=== PATIENT | female | born 1980 | race Caucasian/White ===

== ENCOUNTER 2017-07-27 13:07 | Inpatient (IN) | payer OTHER ==
[~2017-07-27] VITALS: Ht 167.6 cm; Wt 80.7 kg
--- NOTE | 2017-07-27 02:10 | NUR ---
DR. ONEAL CALLED BACK NO NEW ORDERS GIVEN FOR POTASSIUM Addendum: 07/28/17 at 0235 by Yessy Jiménez RN WRONG TIME PUT IN, 2010 IS CORRECT TIME
[~2017-07-27 13:07] MED LIST: ACET-8386 PO; ONDA4ODT1 PO; ONDA4ODT1 SL; PANT40EC PO; TRAM50TA3 PO
[2017-07-27 13:15] VITALS: BP 131/96
--- NOTE | 2017-07-27 13:40 | NUR ---
PATIENT PRESENTS TO ED WITH 37/F PRESENT TO ER C/O NAUSEA AND VOMITING x 2 DAYS. HX: CHRONIC ABD PAIN MEDS: DICYCLOMINE, SUCRRALFATE, PANTOPRAZOLE; DENIES DIARRHEA; SKIN IS PINK/WARM/DRY; AAOX4 WITH EVEN AND STEADY GAIT; LUNGS CLEAR BL; HR EVEN AND REGULAR; PT DENIES ANY FEVER, CP, SOB, OR COUGH AT THIS TIME; PATIENT STATES PAIN OF 10/10 AT THIS TIME; VSS; PATIENT POSITIONED FOR COMFORT; HOB ELEVATED; BEDRAILS UP X2; BED DOWN. ER MD MADE AWARE OF PT STATUS.
--- NOTE | 2017-07-27 13:48 | NUR ---
PT AMBULATED TO BED 7 AT THIS TIME.
[2017-07-27] MEDS ORDERED: ONDANSETRON 4 MG/2 ML VIAL IVP ONE ×2 (13:55→15:05)
[2017-07-27] MEDS ORDERED: HYDROmorphone 1 MG/ML AMP IVP ONE ×2 (13:55→15:45)
[2017-07-27] MEDS ORDERED: PROMETHAZINE 25 MG/ML VIAL IM ONE (14:00)
[2017-07-27] MEDS ORDERED: NACL 0.9% 1,000 ML IV ONE ×2 (14:15→16:40)
[2017-07-27 14:22] LABS: BASOPHILS # (AUTO) 0.3 K/uL (0.00-0.22); EOSINOPHILS # (AUTO) 0.1 K/uL (0-0.4); EOSINOPHILS % (AUTO) 0.6 % (0.0-4.0); HEMOGLOBIN 14.4 g/dL (12.0-16.0); LYMPHOCYTES # (AUTO) 1.9 K/uL (2.5-16.5); LYMPHOCYTES % (AUTO) 11.3 % (20.5-51.1); MEAN CORPUSCULAR HEMOGLOBIN 28 pg (27-31); MEAN CORPUSCULAR HGB CONC 33 g/dL (33-37); MEAN CORPUSCULAR VOLUME 85 fL (80-94); MONOCYTES # (AUTO) 0.4 K/uL (0.8-1.0); MONOCYTES % (AUTO) 2.6 % (1.7-9.3); NEUTROPHILS # (AUTO) 13.7 K/uL (1.8-7.7); NEUTROPHILS % (AUTO) 83.5 % (42.2-75.2); PLATELET COUNT (AUTO) 376 K/uL (140-450); RED BLOOD CELL COUNT(AUTO) 5.19 MIL/uL (4.20-5.40); RED CELL DISTRIBUTION WIDTH 13.8 % (11.6-13.7); WHITE BLOOD COUNT (AUTO) 16.4 K/uL (4.8-10.8)
[2017-07-27 14:38] LABS: ANION GAP 19.5 (8-16); CARBON DIOXIDE 21.7 mmol/L (21-32); CREATININE 1.1 mg/dL (0.6-1.3); POTASSIUM 3.2 mmol/L (3.5-5.1)
[2017-07-27 14:46] LABS: ALBUMIN 4.4 g/dL (3.4-5.0); TOTAL BILIRUBIN 0.3 mg/dL (0.0-1.0)
--- NOTE | 2017-07-27 14:48 | NUR ---
PT UNABLE TO GIVE URINE AT THIS TIME;
[2017-07-27 14:49] LABS: PROTHROMBIN TIME 10.9 secs (10.8-13.4)
[2017-07-27] MEDS ORDERED: diphenhydrAMINE 50 MG/ML VIAL IVP ONE (15:45)
--- NOTE | 2017-07-27 16:15 | NUR ---
X RAY AT BEDSIDE.
--- NOTE | 2017-07-27 16:49 | NUR ---
ASKED PT 4 X IF SHE CAN GIVE URINE SPECIMEN;PT STATES I CAN'T AT THIS TIME;
[2017-07-27] MEDS ORDERED: HYDROcodone/APAP 5/325 MG 1 TAB TAB PO PRN ×2 (17:40)
[2017-07-27] MEDS ORDERED: LORazepam 2 MG/ML VIAL IVP PRN (17:40)
[2017-07-27] MEDS ORDERED: ACETAMINOPHEN 325 MG TAB PO PRN (17:40)
[2017-07-27] MEDS: DEXT 5% /NACL 0.9% 1,000 ML IV SCH (17:40)
[2017-07-27] MEDS ORDERED: METOCLOPRAMIDE 10 MG/2 ML INJ VIAL IVP PRN ×2 (17:40→21:05)
--- NOTE | 2017-07-27 17:49 | NUR ---
Patient will be admitted to care of DR POLLARD. Admited to MS. Will go to room 104 B. Belongings list completed. Report to ALEXANDRE SAUCEDO.
--- NOTE | 2017-07-27 18:38 | NUR ---
PT TO ROOM 104B FROM ER ON [facility], PT AMBULATED FROM HALLWAY TO BED WITHOUT PROBLEM, REPORT RECEIVED FROM BLAIRE RN, PT AAOX4, RESP EVEN UNLABORED, SKIN WARM DRY COLOR WNL SLIGHTLY PALE, PT REPORTS FEELING NAUSEOUS BUT NO ACTIVE VOMITING NOW, PT DENIES PAIN, IV TO RIGHT WRIST 24 WNL, PLAN OF CARE REVIEWED, PT ORIENTED TO ROOM AND FLOOR, SAFETY MEASURES IN PLACE, CALL COLE WITHIN REACH, SIDE RAILS UP, BED LOCKED IN LOW POSITION.
[2017-07-27 18:45] VITALS: BP 142/89
--- NOTE | 2017-07-27 18:55 | NUR ---
MEDICATED WITH REGLAN FOR NAUSEA AT THIS TIME, D5 NS IVF STARTED AT 100ML/HR.
[2017-07-27 19:31] VITALS: BP 137/54
--- NOTE | 2017-07-27 19:31 | NUR ---
REPORT RECEIVED FROM DAY NURSE SHERYL RN, PT AAOX4, RESP EVEN UNLABORED, SKIN WARM DRY COLOR WNL SLIGHTLY PALE, PT REPORTS FEELING NAUSEOUS BUT NO ACTIVE VOMITING NOW, PT DENIES PAIN, IV TO RIGHT WRIST 24 WNL, INITIAL ASSESSMENT COMPLETED, PLAN OF CARE REVIEWED, PT ORIENTED TO ROOM AND FLOOR, SAFETY MEASURES IN PLACE, CALL COLE WITHIN REACH, SIDE RAILS UP, BED LOCKED IN LOW POSITION.
--- NOTE | 2017-07-27 19:50 | NUR ---
PT CURRENTLY VOMITING, PT USING BAG FOR EMESIS, CHANGED PTS SHEETS AND GOWN DUE SOILING
[2017-07-27] MEDS: ONDANSETRON 4 MG/2 ML VIAL IVP PRN (19:54)
--- NOTE | 2017-07-27 19:54 | NUR ---
PT MEDICATED WITH ZOFRAN ORDERED, ALL SAFETY PRECAUTIONS MET, CALL LIGHT WITHIN REACH, WILL CONTINUE TO MONITOR
--- NOTE | 2017-07-27 20:00 | NUR ---
PAGED DR. ONEAL REGARDING PTS POTASSIUM 3.2
--- NOTE | 2017-07-27 20:01 | NUR ---
DR. ONEAL MADE AWARE OF WBC COUNT, 16,4 NO NEW ORDERS GIVEN
--- NOTE | 2017-07-27 20:10 | NUR ---
DR. ONEAL CALLED BACK NO NEW ORDERS GIVEN FOR POTASSIUM
[2017-07-27] MEDS: diphenhydrAMINE 50 MG/ML VIAL IVP SCH (20:38)
--- NOTE | 2017-07-27 21:00 | NUR ---
PAGED DR. ONEAL FOR NEW ORDER FOR PAIN MEDICATION. PT ONLY HAS NORCO ORDERED AND PT IS CURRENTLY VOMITING
--- NOTE | 2017-07-27 21:05 | NUR ---
DR. ONEAL CALLED BACK WITH NEW ORDERS FOR DILAUDID, WILL ADMINISTER NEEDED
[2017-07-27] MEDS: HYDROmorphone 1 MG/ML AMP IVP PRN (23:31)
--- NOTE | 2017-07-27 23:31 | NUR ---
PT STATES SHE IS IN 07/12 IN ABDOMEN, WILL MEDICATE PER MD ORDERS.
[2017-07-28] VITALS: BP 136/76
[2017-07-28] MEDS: DEXT 5% /NACL 0.9% 1,000 ML IV SCH ×4 (00:20→20:20)
[2017-07-28] MEDS: ONDANSETRON 4 MG/2 ML VIAL IVP PRN ×3 (03:07→22:38)
[2017-07-28] MEDS: diphenhydrAMINE 50 MG/ML VIAL IVP SCH ×3 (05:41→22:37)
--- NOTE | 2017-07-28 07:23 | NUR ---
ENDORSED PLAN OF CARE TO AM NURSE, PT IN STABLE CONDITION. NO S/S OF DISTRESS NOTED. CALL LIGHT IS WITHIN REACH
--- NOTE | 2017-07-28 07:24 | NUR ---
RECEIVED CARE OF PT FROM PHOTOCOMPOSING MACHINE OPERATOR NURSE AT BEDSIDE. PT IS A&OX4. PT HAS IV ON R WRIST 24 G RUNNING D5NS@150ML/HR. PT C/O NAUSEA AND PAIN, WILL MEDICATE WHEN MEDS ARE DUE. CALL LIGHT WITHIN REACH. WILL CONTINUE TO MONITOR.
[2017-07-28 07:50] LABS: ALBUMIN 3.7 g/dL (3.4-5.0); ANION GAP 17.5 (8-16); CARBON DIOXIDE 23.1 mmol/L (21-32); CREATININE 0.7 mg/dL (0.6-1.3); POTASSIUM 3.6 mmol/L (3.5-5.1); TOTAL BILIRUBIN 0.2 mg/dL (0.0-1.0)
[2017-07-28] MEDS: HYDROmorphone 1 MG/ML AMP IVP PRN ×2 (07:59→22:38)
[2017-07-28 08:00] VITALS: BP 116/85
[2017-07-28] MEDS: ENOXAPARIN 40 MG/0.4 ML SYR SUBQ SCH (08:12)
[2017-07-28 08:13] LABS: HEMATOCRIT 43.3 % (36-48); HEMOGLOBIN 14.5 g/dL (12.0-16.0); MEAN CORPUSCULAR HEMOGLOBIN 29 pg (27-31); MEAN CORPUSCULAR HGB CONC 34 g/dL (33-37); MEAN CORPUSCULAR VOLUME 86 fL (80-94); PLATELET COUNT (AUTO) 349 K/uL (140-450); RED BLOOD CELL COUNT(AUTO) 5.03 MIL/uL (4.20-5.40); RED CELL DISTRIBUTION WIDTH 14.1 % (11.6-13.7); WHITE BLOOD COUNT (AUTO) 26.7 K/uL (4.8-10.8)
[2017-07-28 08:41] LABS: LYMPHOCYTES % (MANUAL) 8 % (20-46); MONOCYTES % (MANUAL) 2 % (5-12)
--- NOTE | 2017-07-28 09:30 | NUR ---
PT IN SLEEPING COMFORTABLY IN BED. CALL LIGHT WITHIN REACH. WILL CONTINUE TO MONITOR.
--- NOTE | 2017-07-28 11:21 | NUR ---
07/28/17 RD INITIAL ASSESSMENT COMPLETED PLEASE REFER TO NUTRITION ASSESSMENT UNDER CARE ACTIVITY FOR ESTIMATED NUTRITIONAL NEEDS. 1. CONTINUE TO TOLERATE/CONSUME CLEAR LIQUID DIET 2. WHEN MEDICALLY FEASIBLE, ADVANCE TO REGULAR DIET TOLERATED 3. RD TO FOLLOW UP WITHIN 2-3 DAYS; HIGH RISK DEVIN MACIEL, JUAN PABLO
--- NOTE | 2017-07-28 11:30 | NUR ---
PROVIDED PT WITH APPLE JUICE. PT TOLERATED WELL. CALL LIGHT WITHIN REACH. WILL CONTINUE TO MONITOR.
--- NOTE | 2017-07-28 12:30 | NUR ---
PT STATED NAUSEA HAS IMPROVED AND PAIN IN TOLERABLE. CALL LIGHT WITHIN REACH. WILL CONTINUE TO MONITOR.
[2017-07-28] MEDS: metroNIDAZOLE 500 MG/NS PREMIX 100 ML IV SCH ×2 (12:57→22:37)
--- NOTE | 2017-07-28 13:30 | NUR ---
PT GOT UP TO USE BATHROOM. URINE SAMPLE COLLECTED. FOUND THAT PT HAD 1 VOID ON PAD TOO. PT TOLERATED WELL. HELPED BACK TO BED. CALL LIGHT WITHIN REACH. WILL CONTINUE TO MONITOR.
--- NOTE | 2017-07-28 13:40 | NUR ---
SPOKE TO DR. POLLARD REGARDING DIFFICULTY PUTTING IN NEW IV OF 20 GAUGE FOR IV CONTRAST. GAVE ORDER FOR CT ABD/PELVIS WITH ORAL CONTRAST ONLY. WILL CARRY OUT.
[2017-07-28 14:33] LABS: BASOPHILS # (AUTO) 0.2 K/uL (0.00-0.22); BASOPHILS % (AUTO) 0.9 % (0.0-2.0); EOSINOPHILS # (AUTO) 0.1 K/uL (0-0.4); EOSINOPHILS % (AUTO) 0.4 % (0.0-4.0); HEMATOCRIT 38.2 % (36-48); HEMOGLOBIN 12.8 g/dL (12.0-16.0); LYMPHOCYTES % (AUTO) 16.6 % (20.5-51.1); MEAN CORPUSCULAR HEMOGLOBIN 29 pg (27-31); MEAN CORPUSCULAR HGB CONC 34 g/dL (33-37); MEAN CORPUSCULAR VOLUME 86 fL (80-94); MONOCYTES % (AUTO) 5.7 % (1.7-9.3); NEUTROPHILS % (AUTO) 76.4 % (42.2-75.2); PLATELET COUNT (AUTO) 331 K/uL (140-450); RED BLOOD CELL COUNT(AUTO) 4.45 MIL/uL (4.20-5.40); RED CELL DISTRIBUTION WIDTH 13.8 % (11.6-13.7); WHITE BLOOD COUNT (AUTO) 18.3 K/uL (4.8-10.8)
[2017-07-28 14:42] LABS: APPEARANCE,URINE CLEAR (CLEAR); BILIRUBIN,URINE NEGATIVE (NEGATIVE); BLOOD, URINE NEGATIVE (NEGATIVE); COLOR,URINE YELLOW (YELLOW); LEUKOCYTE ESTERASE ,URINE NEGATIVE (NEGATIVE); NITRITE, URINE NEGATIVE (NEGATIVE); UGLUCOSE NEGATIVE (NEGATIVE)
[2017-07-28 14:47] LABS: BARBITURATE, URINE NEG. ng/ml (NEG <=200); BENZODIAZEPINE, URINE NEG. ng/mL (NEG <=200); CANNABINOID, URINE NEG. ng/mL (NEG <=50); COCAINE, URINE NEG. ng/mL (NEG <=300); OPIATE, URINE NEG. ng/mL (NEG <=2000); PHENCYCLIDINE SCREEN,URINE NEG. ng/mL (NEG <=25)
[2017-07-28 16:00] VITALS: BP 112/72
[2017-07-28] MEDS: SENNA 8.6 MG TAB PO SCH (17:00)
--- NOTE | 2017-07-28 17:00 | NUR ---
MED NOT ADMINISTERED DUE TO PT'S NPO STATUS, PREPING FOR CT ABD/PELVIS WITH ORAL CONTRAST.
--- NOTE | 2017-07-28 18:10 | NUR ---
PT WHEELED BY [place] FOR CT SCAN. PT IN STABLE CONDITION.
--- NOTE | 2017-07-28 18:25 | NUR ---
PT CAME BACK TO UNIT. CALL LIGHT WITHIN REACH. WILL CONTINUE TO MONITOR.
--- NOTE | 2017-07-28 19:35 | NUR ---
ENDORSED CARE OF PT TO MOSAIC TECHNICIAN NURSE AT BEDSIDE. PT IN STABLE CONDITION.
--- NOTE | 2017-07-28 19:36 | NUR ---
RECD. RESTING IN BED, AWAKE, A/OX4. JUST BEEN TO RADIOLOGY FOR A TEST. IV SALINE LOCK AT THE RIGHT WRIST G24, PATENT AND INTACT. NO N/V NOTED AT THIS TIME. PLAN OF CARE FOR THE SHIFT DISCUSSED. VERBALIZED UNDERSTANDING. DENIES PAIN 0/10.
--- NOTE | 2017-07-28 20:00 | NUR ---
Patient's Plan of Care was discussed and reviewed with ZONE MANAGER: GRAY
[2017-07-28 22:35] VITALS: BP 111/70
[2017-07-28] MEDS: FAMOTIDINE 20 MG/2 ML VIAL IV SCH (22:37)
--- NOTE | 2017-07-28 22:37 | NUR ---
STARTED FLAGYL IVPB AT THIS TIME. IVPB INFUSING WELL.
--- NOTE | 2017-07-28 22:38 | NUR ---
NAUSEATED, MEDICATED WITH ZOFRAN 4 MG. IVP BY ALEXANDRE LONGORIA.
--- NOTE | 2017-07-28 23:08 | NUR ---
NO NAUSEA NOTED, RESTING COMFORTABLY IN BED.
--- NOTE | 2017-07-28 23:37 | NUR ---
LEAH LINARESPB COMPLETED AT THIS TIME.
--- NOTE | 2017-07-29 | NUR ---
SLEEPING COMFORTABLY IN BED.
[2017-07-29] MEDS: DEXT 5% /NACL 0.9% 1,000 ML IV SCH ×4 (03:31→23:00)
[2017-07-29] MEDS: diphenhydrAMINE 50 MG/ML VIAL IVP SCH ×3 (04:30→21:06)
[2017-07-29] MEDS: metroNIDAZOLE 500 MG/NS PREMIX 100 ML IV SCH ×3 (04:30→21:05)
--- NOTE | 2017-07-29 04:30 | NUR ---
STARTED FLAGYL IVPB AT THIS TIME. IVPB INFUSING WELL.
--- NOTE | 2017-07-29 05:30 | NUR ---
LEAH LINARESPB COMPLETED AT THIS TIME.
--- NOTE | 2017-07-29 06:45 | NUR ---
CONDITION REMAIN STABLE. WILL ENDORSE TO AM NURSE FOR CONTINUITY OF CARE.
--- NOTE | 2017-07-29 07:20 | NUR ---
RECIVED REPORT FROM NIGHT NURSE, PT IS AAOX4, ON ROOM AIR, IV TO RIGHT WRIST 24G INFUSING WELL, SKIN INTACT, INITIAL ASSESSMENT COMPLETED, REVIEWED PLAN OF CARE WITH PT, PT VERBALIZED UNDERSTANDING, ALL SAFETY PRECAUTION MET. CALL LIGHT WITHIN REACH. WILL CONTINUE TO MONITOR.
[2017-07-29 08:00] VITALS: BP 121/75
[2017-07-29 09:16] LABS: BASOPHILS # (AUTO) 0.2 K/uL (0.00-0.22); BASOPHILS % (AUTO) 2.2 % (0.0-2.0); EOSINOPHILS # (AUTO) 0.2 K/uL (0-0.4); EOSINOPHILS % (AUTO) 1.8 % (0.0-4.0); HEMATOCRIT 38.7 % (36-48); HEMOGLOBIN 12.5 g/dL (12.0-16.0); LYMPHOCYTES # (AUTO) 2.9 K/uL (2.5-16.5); LYMPHOCYTES % (AUTO) 26.1 % (20.5-51.1); MEAN CORPUSCULAR HEMOGLOBIN 28 pg (27-31); MEAN CORPUSCULAR HGB CONC 32 g/dL (33-37); MEAN CORPUSCULAR VOLUME 87 fL (80-94); MONOCYTES # (AUTO) 0.7 K/uL (0.8-1.0); MONOCYTES % (AUTO) 5.9 % (1.7-9.3); NEUTROPHILS # (AUTO) 7.2 K/uL (1.8-7.7); PLATELET COUNT (AUTO) 252 K/uL (140-450); RED BLOOD CELL COUNT(AUTO) 4.47 MIL/uL (4.20-5.40); WHITE BLOOD COUNT (AUTO) 11.2 K/uL (4.8-10.8)
[2017-07-29] MEDS: SENNA 8.6 MG TAB PO SCH ×3 (09:23→16:50)
[2017-07-29] MEDS: FAMOTIDINE 20 MG/2 ML VIAL IV SCH ×2 (09:23→21:06)
[2017-07-29 09:29] LABS: ANION GAP 12.1 (8-16); CARBON DIOXIDE 24.9 mmol/L (21-32); CREATININE 0.9 mg/dL (0.6-1.3)
[2017-07-29] MEDS: ENOXAPARIN 40 MG/0.4 ML SYR SUBQ SCH (09:34)
--- NOTE | 2017-07-29 09:34 | NUR ---
DUE MEDICATIONS GIVEN, PT TOLERATED WELL. WILL CONTINUE TO MONITOR.
[2017-07-29 09:35] LABS: CHOL/HDL RATIO 4.2 (1-4.5)
[2017-07-29] MEDS ORDERED: ONDA4TAB PO (10:10)
[2017-07-29] MEDS ORDERED: METR500T1 PO (10:10)
[2017-07-29] MEDS ORDERED: DICY10CA14 PO (10:10)
[2017-07-29] MEDS ORDERED: HYDROmorphone 1 MG/ML AMP IVP PRN (10:15)
[2017-07-29] MEDS ORDERED: POTASSIUM CHLORIDE 10 MEQ TABER PO SCH ×2 (10:15→21:00)
[2017-07-29] MEDS: METOCLOPRAMIDE 10 MG TAB PO SCH ×2 (11:47→16:49)
--- NOTE | 2017-07-29 11:47 | NUR ---
DUE MEDICATIONS GIVEN, PT TOLERATED WELL. ALL NEEDS MET. WILL CONTINUE TO MONITOR.
[2017-07-29] MEDS: DICYCLOMINE HCL LIQUID 10 MG/5 ML UDC PO SCH ×3 (12:46→21:10)
--- NOTE | 2017-07-29 12:48 | NUR ---
DUE MEDICATIONS GIVEN. PT TOLERATED WELL. WILL CONTINUE TO MONITOR.
--- NOTE | 2017-07-29 14:16 | NUR ---
PT CURRENTLY RESTING IN ROOM ON CELL PHONE, ALL NEEDS MET. WILL CONTINUE TO MONITOR.
[2017-07-29 16:00] VITALS: BP 122/68
--- NOTE | 2017-07-29 16:10 | NUR ---
PT CURRENTLY RESTING IN BED, READING. NO S/S OF DISTRESS NOTED. WILL CONTINUE TO MONITOR.
--- NOTE | 2017-07-29 17:25 | NUR ---
PT CURRENTLY RESTING, IN BED. ALL NEEDS MET. WILL CONTINUE TO MONITOR.
--- NOTE | 2017-07-29 19:20 | NUR ---
ENDORSED PLAN OF CARE TO NIGHT NURSE, PT IN STABLE CONDITION
--- NOTE | 2017-07-29 19:21 | NUR ---
RECD. RESTING IN BED, AWAKE, A/OX4. RESPIRATION EVEN AND UNLABORED. IV OF NS INFUSING, RIGHT WRIST G24, AT 50 ML/HR. STATED NOT FEELING NAUSEATED, FEELING MUCH BETTER THAN YESTERDAY. PLAN OF CARE FOR THE SHIFT DISCUSSED. VERBALIZED UNDERSTANDING. DENIES PAIN AT THIS TIME 010.
--- NOTE | 2017-07-29 19:30 | NUR ---
RECEIVED PT IN STABLE CONDITION FROM AM NURSE. AWAKE,ALERT AND ORIENTED X4, ON ARELY MONITOR. WITH NO C/O ANY DISCOMFORT NOR PAIN NOTED. WITH BLOOD TRANSFUSION 2ND UNIT STILL INFUSING. PLAN OF CARE DISCUSSED . VERBALIZED UNDERSTANDING. CALL LIGHT PLACED WITHIN EASY REACH. WILL CONTINUE TO MONITOR. Addendum: 07/29/17 at 1957 by Kaley Yusuf RN CANCEL ABOVE NOTES. CAREGIVER MISTAKE.
[2017-07-29 19:45] VITALS: BP 111/66
[2017-07-29] MEDS: POTASSIUM CHLORIDE 10 MEQ TABER PO SCH (21:00)
[2017-07-29] MEDS: DOCUSATE SODIUM 250 MG GELCAP PO SCH (21:00)
--- NOTE | 2017-07-29 22:42 | NUR ---
Patient's Plan of Care was discussed and reviewed with SENIOR INVESTIGATOR: ANA MARÍA CASTELLANO
[2017-07-30] VITALS: BP 118/65
--- NOTE | 2017-07-30 | NUR ---
SLEEPING COMFORTABLY IN BED.
[2017-07-30] MEDS: DEXT 5% /NACL 0.9% 1,000 ML IV SCH ×2 (02:16→05:40)
--- NOTE | 2017-07-30 04:00 | NUR ---
STILL SLEEPING COMFORTABLY IN BED, NO N/V NOTED SINCE THE BEGINNING OF SHIFT.
[2017-07-30] MEDS: metroNIDAZOLE 500 MG/NS PREMIX 100 ML IV SCH ×2 (05:21→12:13)
[2017-07-30] MEDS: diphenhydrAMINE 50 MG/ML VIAL IVP SCH ×2 (05:21→12:16)
--- NOTE | 2017-07-30 07:05 | NUR ---
RECEIVED REPORT FROM NIGHT NURSE, PT IS AAOX4, ON ROOM AIR, LEFT HAND 22G , SKIN INTACT, INITIAL ASSESSMENT COMPLETED, REVIEWED PLAN OF CARE WITH PT, PT VERBALIZED UNDERSTANDING, ALL SAFETY PRECAUTION MET. CALL LIGHT WITHIN REACH. WILL CONTINUE TO MONITOR.
--- NOTE | 2017-07-30 07:05 | NUR ---
ABLE TO SLEPT WELL. ENDORSED TO ALEXANDRE MARRUFO FOR CONTINUITY OF CAFE.
[2017-07-30 07:48] VITALS: BP 112/71
[2017-07-30] MEDS: DICYCLOMINE HCL LIQUID 10 MG/5 ML UDC PO SCH ×2 (08:36→12:16)
[2017-07-30] MEDS: METOCLOPRAMIDE 10 MG TAB PO SCH ×2 (08:36→11:09)
[2017-07-30] MEDS: FAMOTIDINE 20 MG/2 ML VIAL IV SCH (08:36)
--- NOTE | 2017-07-30 08:36 | NUR ---
DUE MEDICATIONS GIVEN, PT TOLERATED WELL. ALL NEEDS MET. WILL CONTINUE TO MONITOR.
[2017-07-30] MEDS: POTASSIUM CHLORIDE 10 MEQ TABER PO SCH (08:39)
[2017-07-30] MEDS: ENOXAPARIN 40 MG/0.4 ML SYR SUBQ SCH (08:46)
[2017-07-30] MEDS: SENNA 8.6 MG TAB PO SCH ×2 (08:47→13:00)
[2017-07-30] MEDS: DOCUSATE SODIUM 250 MG GELCAP PO SCH (08:47)
[2017-07-30 09:51] LABS: BASOPHILS # (AUTO) 0.2 K/uL (0.00-0.22); BASOPHILS % (AUTO) 1.9 % (0.0-2.0); EOSINOPHILS # (AUTO) 0.3 K/uL (0-0.4); EOSINOPHILS % (AUTO) 2.4 % (0.0-4.0); HEMATOCRIT 40.2 % (36-48); HEMOGLOBIN 13.3 g/dL (12.0-16.0); LYMPHOCYTES # (AUTO) 2.5 K/uL (2.5-16.5); LYMPHOCYTES % (AUTO) 20.1 % (20.5-51.1); MEAN CORPUSCULAR HEMOGLOBIN 28 pg (27-31); MEAN CORPUSCULAR HGB CONC 33 g/dL (33-37); MEAN CORPUSCULAR VOLUME 86 fL (80-94); MONOCYTES # (AUTO) 0.9 K/uL (0.8-1.0); MONOCYTES % (AUTO) 7.2 % (1.7-9.3); NEUTROPHILS # (AUTO) 8.8 K/uL (1.8-7.7); NEUTROPHILS % (AUTO) 68.4 % (42.2-75.2); PLATELET COUNT (AUTO) 260 K/uL (140-450); RED BLOOD CELL COUNT(AUTO) 4.69 MIL/uL (4.20-5.40); RED CELL DISTRIBUTION WIDTH 13.8 % (11.6-13.7); WHITE BLOOD COUNT (AUTO) 12.6 K/uL (4.8-10.8)
[2017-07-30 10:19] LABS: ANION GAP 9.1 (8-16); CARBON DIOXIDE 26.3 mmol/L (21-32); CREATININE 0.8 mg/dL (0.6-1.3); POTASSIUM 3.4 mmol/L (3.5-5.1)
--- NOTE | 2017-07-30 10:37 | NUR ---
DISCUSSED DISCHARGE PLAN WITH PT, PT VERBALIZED UNDERSTANDING.
--- NOTE | 2017-07-30 11:10 | NUR ---
DUE MEDICATIONS GIVEN, PT CURRENTLY RESTING IN BED, ALL NEEDS MET. WILL CONTINUE TO MONITOR
--- NOTE | 2017-07-30 11:24 | NUR ---
CM NOTE REVIEW FAXED TO [facility] [phone] [place] [phone]
--- NOTE | 2017-07-30 12:17 | NUR ---
DUE MEDICATIONS GIVEN, PT CURRENTLY READING A BOOK ALL NEEDS MET. WILL CONTINUE TO MONITOR.
--- NOTE | 2017-07-30 14:20 | NUR ---
PT SIGNED ALL DISCHARGE PAPERWORK, PRESCRIPTION GIVEN, FOLLOW UP INFORMATION GIVEN, ALL PERSONAL BELONGINGS WITH PT, IV REMOVED TIP INTACT.
--- NOTE | 2017-07-30 14:45 | NUR ---
PT WAS WALKED OUT TO FRONT LOBBY IN STABLE CONDITION.
== END 2017-07-30 14:45 | disposition home or self-care (01) | DRG 254 ==
LOC: MED 13:07 → MTU 17:44 → OBSVTOIN 21:03
PROVIDERS: ADMIT Hospitalist; ATTEND Hospitalist
DX: K58.9 Irritable bowel syndrome, unspecified (principal); F33.9 Major depressive disorder, recurrent, unspecified; K27.9 Peptic ulcer, site unspecified, unspecified as acute or chronic, without hemorrhage or perforation; G43.A0 Cyclical vomiting, in migraine, not intractable; D72.829 Elevated white blood cell count, unspecified; E66.9 Obesity, unspecified; K59.00 Constipation, unspecified; K21.9 Gastro-esophageal reflux disease without esophagitis; E87.6 Hypokalemia; Z68.28 Body mass index [BMI] 28.0-28.9, adult; Z90.49 Acquired absence of other specified parts of digestive tract; Z87.891 Personal history of nicotine dependence
CPT/HCPCS: 96361; 96372; 96374; 96375; 96376; 99285; G0378; 36415; 70450; 74000; 80048; 80053; 80305; 81003; 82150; 83690; 83735; 84703; 85025; 85610; 85730; 86140; 87081; J1170; J1200; J1650; J2405; J2550; J2765; J3490; J7030; J7042; J8597; Q0092

== ENCOUNTER 2017-09-05 09:07 | Emergency (ER) | payer OTHER ==
[~2017-09-05] VITALS: Ht 167.6 cm; Wt 84.0 kg
[~2017-09-05 09:07] MED LIST changes: -ACET-8386 PO; +DICY10CA14 PO; +METR500T1 PO; -ONDA4ODT1 PO; -ONDA4ODT1 SL; +ONDA4TAB PO; -TRAM50TA3 PO
[2017-09-05 09:11] VITALS: BP 148/82
--- NOTE | 2017-09-05 09:17 | NUR ---
Patient ambulated to bed 12 after providing a urine specimen. RN evaluating patient at bedside.
--- NOTE | 2017-09-05 09:18 | NUR ---
37F BIB FATHER C/O MID-ABDOMINAL PAIN X LAST NIGHT WITH VOMITING X THIS MORNING.HX: GASTRITIS, IBS, PANCREATITIS. RX: PT STATES " IT'S IN THE RECORDS". SKIN IS PINK/WARM/DRY; AAOX4 WITH EVEN AND STEADY GAIT; LUNGS CLEAR BL; PT DENIES ANY FEVER, CP, SOB, OR COUGH AT THIS TIME; PATIENT STATES PAIN OF 8/10 AT THIS TIME; PATIENT POSITIONED FOR COMFORT; HOB ELEVATED; BEDRAILS UP X2; BED DOWN. ER MD MADE AWARE OF PT STATUS.
--- NOTE | 2017-09-05 09:42 | NUR ---
Dr. Rueda evaluating patient at bedside.
[2017-09-05] MEDS ORDERED: HYDROmorphone PFS 2 MG/ML SYR IM ONE ×2 (09:45→10:55)
[2017-09-05] MEDS ORDERED: GLYCOPYRROLATE 0.2 MG/ML VIAL IM ONE (09:45)
[2017-09-05] MEDS ORDERED: diphenhydrAMINE 50 MG/ML VIAL IM ONE (09:45)
[2017-09-05 10:57] LABS: APPEARANCE,URINE SL CLOUDY (CLEAR); BILIRUBIN,URINE NEGATIVE (NEGATIVE); BLOOD, URINE 3+ (NEGATIVE); COLOR,URINE YELLOW (YELLOW); LEUKOCYTE ESTERASE ,URINE NEGATIVE (NEGATIVE); NITRITE, URINE NEGATIVE (NEGATIVE); UGLUCOSE NEGATIVE (NEGATIVE)
[2017-09-05 11:12] LABS: RBC,URINE 50-80 /HPF (0-5); WBC,URINE 0-5 (RARE) /HPF (0-5)
[2017-09-05 11:24] LABS: BARBITURATE, URINE NEG. ng/ml (NEG <=200); BENZODIAZEPINE, URINE NEG. ng/mL (NEG <=200); CANNABINOID, URINE NEG. ng/mL (NEG <=50); COCAINE, URINE NEG. ng/mL (NEG <=300); OPIATE, URINE NEG. ng/mL (NEG <=2000); PHENCYCLIDINE SCREEN,URINE NEG. ng/mL (NEG <=25)
--- NOTE | 2017-09-05 11:45 | NUR ---
Dr. Rueda reevaluating patient at bedside.
--- NOTE | 2017-09-05 11:54 | NUR ---
Patient STATES ABD PAIN 2/10 . PT appears to be resting comfortably in bed. Vital Signs within normal limits. Respirations even and unlabored.WILL CONTINUE TO MONITOR.
[2017-09-05 12:20] VITALS: BP 125/74
--- NOTE | 2017-09-05 12:20 | NUR ---
Patient discharged with v/s stable. Written and verbal after care instructions given and explained. Patient alert, oriented and verbalized understanding of instructions. Ambulatory with steady gait. All questions addressed prior to discharge. ID band removed. Patient advised to follow up with PMD. Rx of LEVSIN given. Patient educated on indication of medication including possible reaction and side effects. Opportunity to ask questions provided and answered.
== END 2017-09-05 12:20 | disposition home or self-care (01) ==
LOC: MED 09:07
DX: K58.9 Irritable bowel syndrome, unspecified (principal); K21.9 Gastro-esophageal reflux disease without esophagitis; Z90.89 Acquired absence of other organs
CPT/HCPCS: 80305; 81001; 81025; 96372; 99284; J1170; J1200; J3490

== ENCOUNTER 2018-11-26 13:09 | Inpatient (IN) | payer OTHER ==
[~2018-11-26] VITALS: Ht 167.6 cm; Wt 77.1 kg
[2018-11-26 13:20] VITALS: BP 108/76
--- NOTE | 2018-11-26 13:24 | NUR ---
pt ambulated to er bed 11
--- NOTE | 2018-11-26 13:30 | NUR ---
PT PRESENTS TO THE ED W/C/O GEN ABD PAIN X 1 WEEK. PT STATES THE PAIN GOES FROM THE LEFT THE RIGHT. PT STATES N/V SINCE YESTERDAY. DENIES DIARRHEA. HX: IBS, GERD RX: PANTORAZOLE, DICYCLOMINE, SUCRAPHATE. NKA
[2018-11-26] MEDS: NACL 0.9% 1,000 ML IV ONE ×2 (13:57→14:40)
[2018-11-26] MEDS ORDERED: NACL 0.9% 1,000 ML IV SCH ×2 (13:57→23:55)
[2018-11-26] MEDS ORDERED: MORPHINE SULFATE 4 MG/ML SYR IVP ONE (14:00)
[2018-11-26] MEDS ORDERED: PROMETHAZINE 25 MG/ML VIAL IM ONE (14:00)
[2018-11-26] MEDS ORDERED: KETOROLAC 30 MG/ML VIAL IVP ONE (14:00)
[2018-11-26] MEDS ORDERED: DICYCLOMINE HCL LIQUID 10 MG/5 ML UDC PO ONE (14:00)
--- NOTE | 2018-11-26 14:00 | NUR ---
PT ACTIVELY VOMITING
[2018-11-26 14:47] LABS: APPEARANCE,URINE SL CLOUDY (CLEAR); BILIRUBIN,URINE NEGATIVE (NEGATIVE); BLOOD, URINE NEGATIVE (NEGATIVE); COLOR,URINE YELLOW (YELLOW); LEUKOCYTE ESTERASE ,URINE NEGATIVE (NEGATIVE); NITRITE, URINE NEGATIVE (NEGATIVE); UGLUCOSE NEGATIVE (NEGATIVE)
[2018-11-26 14:52] LABS: RBC,URINE 0-5 (RARE) /HPF (0-5); WBC,URINE 0-5 (RARE) /HPF (0-5)
[2018-11-26 14:58] LABS: BASOPHILS % (AUTO) 0.2 % (0.0-2.0); EOSINOPHILS # (AUTO) 0.1 K/uL (0-0.4); EOSINOPHILS % (AUTO) 0.4 % (0.0-4.0); HEMATOCRIT 45.5 % (36-48); LYMPHOCYTES # (AUTO) 2.7 K/uL (2.5-16.5); LYMPHOCYTES % (AUTO) 14.2 % (20.5-51.1); MEAN CORPUSCULAR HEMOGLOBIN 28 pg (27-31); MEAN CORPUSCULAR HGB CONC 33 g/dL (33-37); MEAN CORPUSCULAR VOLUME 83.6 fL (80-94); MONOCYTES # (AUTO) 0.8 K/uL (0.8-1.0); NEUTROPHILS # (AUTO) 15.3 K/uL (1.8-7.7); NEUTROPHILS % (AUTO) 81.2 % (42.2-75.2); PLATELET COUNT (AUTO) 314 K/uL (140-450); RED BLOOD CELL COUNT(AUTO) 5.44 MIL/uL (4.20-5.40); RED CELL DISTRIBUTION WIDTH 15.7 % (11.6-13.7); WHITE BLOOD COUNT (AUTO) 18.8 K/uL (4.8-10.8)
--- NOTE | 2018-11-26 15:00 | NUR ---
PT COMPLAINING OF PAIN AND CONTINUED EMESIS. ED MD NOTIFIED.
[2018-11-26 15:01] LABS: CARBON DIOXIDE 23.3 mmol/L (21-32); CREATININE 0.9 mg/dL (0.6-1.3); POTASSIUM 3.3 mmol/L (3.5-5.1)
[2018-11-26 15:06] LABS: ALBUMIN 4.2 g/dL (3.4-5.0); TOTAL BILIRUBIN 0.5 mg/dL (0.0-1.0)
[2018-11-26] MEDS ORDERED: FAMOTIDINE 20 MG/2 ML VIAL IVP ONE (16:00)
[2018-11-26] MEDS ORDERED: METOCLOPRAMIDE 10 MG/2 ML INJ VIAL IVP ONE (16:00)
--- NOTE | 2018-11-26 16:00 | NUR ---
PT DECLINED CT, CONTINUES TO COMPLAIN OF PAIN AND EMESIS. ED MD NOTIFIED.
[2018-11-26] MEDS ORDERED: MORPHINE SULFATE 4 MG/ML SYR IM ONE (16:30)
[2018-11-26] MEDS ORDERED: NACL 0.9% 1,000 ML IV ONE (16:30)
--- NOTE | 2018-11-26 17:01 | NUR ---
ULTRASOUND AT BEDSIDE
--- NOTE | 2018-11-26 18:49 | NUR ---
PT CONTINUES TO VOMIT AND COMPLAIN OF PAIN. ED MD NOTIFIED.
--- NOTE | 2018-11-26 19:00 | NUR ---
HCG NEGATIVE PER LAB, CALLL RECEIVED AT THIS TIME. RN AND ER MD NOTIFIED.
--- NOTE | 2018-11-26 19:15 | NUR ---
REPORT GIVEN TO ALEXANDRE LONGORIA.
--- NOTE | 2018-11-26 19:30 | NUR ---
PT LAYING IN BED, RR EVEN AND UNLABORED. PT ACTIVELY VOMITING WITH YELLOW EMESIS, DR NAVARRO MADE AWARE.
[2018-11-26] MEDS ORDERED: ONDANSETRON 4 MG/2 ML VIAL IVP ONE (19:35)
[2018-11-26 19:53] LABS: BARBITURATE, URINE NEG. ng/ml (NEG <=200); BENZODIAZEPINE, URINE NEG. ng/mL (NEG <=200); CANNABINOID, URINE NEG. ng/mL (NEG <=50); COCAINE, URINE NEG. ng/mL (NEG <=300); OPIATE, URINE NEG. ng/mL (NEG <=2000); PHENCYCLIDINE SCREEN,URINE NEG. ng/mL (NEG <=25)
--- NOTE | 2018-11-26 20:07 | NUR ---
PT STILL HAVING NAUSEA AND ACTIVE VOMITING YELLOW EMESIS DESPITE ZOFRAN IVP, REPORTS 10/[address] DURAND MADE AWARE.
[2018-11-26] MEDS ORDERED: PROCHLORPERAZINE 10 MG/2 ML VIAL IVP ONE (20:40)
[2018-11-26] MEDS ORDERED: fentaNYL 0.05 MG/ML VIAL IVP ONE (21:35)
--- NOTE | 2018-11-26 23:20 | NUR ---
Patient will be admitted to care of DR. VO. Admited to MEDR. Will go to room 105A. Belongings list completed. Report to ALEXANDRE RODRIGUEZ
--- NOTE | 2018-11-26 23:30 | NUR ---
PT ARRIVED AT UNIT VIA WHEELCHAIR, AMBULATED TO BED, PT TOLERATED WELL, NO DISTRESS NOTED, RECEIVED BEDSIDE REPORT FROM ER NURSE VON RN, PT IN STABLE CONDITION, IV TO L WRIST 24G PATENT, INTACT, SL, PT ON ROOM AIR, NO SOB, PT STATED HAVING PAIN AT THIS MOMENT, WILL CALL FOR ORDERS, MRSA SWAB TAKEN, ORIENT PT TO ROOM, BED AND CALL LIGHT, INITIAL ASSESSMENT DONE, ALL SAFETY PRECAUTION MET, CALL LIGHT WITHIN REACH, WILL CONTINUE TO MONITOR.
[2018-11-26 23:45] VITALS: BP 137/77
[2018-11-26] MEDS ORDERED: MORPHINE SULFATE 4 MG/ML SYR IVP PRN (23:55)
[2018-11-26] MEDS ORDERED: ONDANSETRON 4 MG/2 ML VIAL IVP PRN (23:55)
--- NOTE | 2018-11-26 23:56 | NUR ---
TALKED TO DR. IRENE REGARDING PT ORDERS, STATED TO ORDER FULL LIQUID DIET, PROTONIX 40MG BID, ZOFRAN 4MG IVP Q6H PRN NAUSEA, MORPHINE 2MG IVP Q3H PRN PAIN, IVF NS @ 100ML/HR, LEVAQUIN 250MG IVPB QD, BMP, CBC FOR THE MORNING, AND URINE CULTURE, WILL PUT IN ORDERS AND CONTINUE WITH ORDERS
[2018-11-27] MEDS ORDERED: LEVOFLOXACIN 250 MG/D5 PREMIX 50 ML IV SCH
--- NOTE | 2018-11-27 00:21 | NUR ---
PAIN MEDICATION ADMINISTERED, PT ALSO C/O NAUSEA AND VOMITED, ZOFRAN ORDERED ADMINISTER, PT TOLERATED WELL, DUE MEDICATIONS ADMINISTERED, PT TOLERATED WELL, CALL LIGHT WITHIN REACH, WILL CONTINUE TO MONITOR.
[2018-11-27] MEDS ORDERED: POTASSIUM CHLORIDE 10 MEQ TABER PO SCH (01:00)
--- NOTE | 2018-11-27 03:40 | NUR ---
PT SLEEPING, NO DISTRESS NOTED, CALLL LIGHT WITHIN REACH, WILL CONTINUE TO MONITOR.
--- NOTE | 2018-11-27 06:30 | NUR ---
PT AMBULATED TO RESTROOM AND BACK TO BED, TOLERATED WELL, URINE COLLECTED FOR URINE CULTURE. PT RESTING, NO DISTRESS NOTED, CALL LIGHT WITHIN REACH, WILL CONTINUE TO MONITOR.
[2018-11-27 07:10] LABS: BASOPHILS % (AUTO) 0.1 % (0.0-2.0); EOSINOPHILS % (AUTO) 0.1 % (0.0-4.0); HEMATOCRIT 37.3 % (36-48); LYMPHOCYTES # (AUTO) 2.2 K/uL (2.5-16.5); MEAN CORPUSCULAR HEMOGLOBIN 27 pg (27-31); MEAN CORPUSCULAR HGB CONC 32 g/dL (33-37); MEAN CORPUSCULAR VOLUME 84.5 fL (80-94); MONOCYTES # (AUTO) 1.2 K/uL (0.8-1.0); NEUTROPHILS # (AUTO) 16.5 K/uL (1.8-7.7); NEUTROPHILS % (AUTO) 82.8 % (42.2-75.2); PLATELET COUNT (AUTO) 267 K/uL (140-450); RED BLOOD CELL COUNT(AUTO) 4.42 MIL/uL (4.20-5.40); WHITE BLOOD COUNT (AUTO) 19.9 K/uL (4.8-10.8)
--- NOTE | 2018-11-27 07:10 | NUR ---
PT REPORT RECEIVED FROM CORPORATE AFFAIRS MANAGER NURSE AT BEDSIDE. PT IS ASLEEP AT THIS TIME, NO S/S OF ACUTE DISTRESS OR SOB. PT IS ON ROOM AIR, SKIN IS INTACT. IV SITE NOTED ON L WRIST, 24 G, NS INFUSING AT 100 ML/HR. PT IS AMBULATORY. PT CURRENTLY ON A FULL LIQUID DIET. CALL LIGHT WITHIN REACH. WILL CONT TO MONITOR.
--- NOTE | 2018-11-27 07:25 | NUR ---
ENDORSED PT TO DAY SHIFT NURSE GRECIA RN, PT STABLE, NO DISTRESS NOTED, CALL LIGHT WITHIN REACH.
[2018-11-27] MEDS ORDERED: PANTOPRAZOLE 40 MG TABEC PO SCH (07:30)
[2018-11-27 07:57] LABS: CARBON DIOXIDE 22.4 mmol/L (21-32); CREATININE 0.6 mg/dL (0.6-1.3); POTASSIUM 4.4 mmol/L (3.5-5.1)
[2018-11-27 08:00] VITALS: BP 95/60
[2018-11-27] MEDS ORDERED: ONDA4TAB PO (11:09)
[2018-11-27] MEDS ORDERED: DICYCLOMINE 10 MG CAP PO SCH (13:00)
--- NOTE | 2018-11-27 13:00 | NUR ---
PT TOLERATED LIQUID DIET LUNCH WELL. NO C/O ABD PAIN OR NAUSEA. PER MD, PT CAN DISCHARGE
--- NOTE | 2018-11-27 16:05 | NUR ---
PT HAS DISCHARGED. PT RECEIVED HER DISCHARGE INSTRUCTIONS AND PRESCRIPTION. DISCHARGE PAPERS SIGNED. IV TAKEN OUT, WRIST BANDS REMOVED. PT REFUSED A FLU VACCINE. PT LEFT WITH ALL HER BELONGINGS IN STABLE CONDITION ACCOMPANIED BY FAMILY
--- NOTE | 2018-11-29 13:58 | NUR ---
CALLED DR. VARGAS'S OFFICE. MADE FOLLOW UP APPOINTMENT FOR Dec AT 3:50P.M. [address] [id number] [facility] [place] [phone]. I CALLED THE PATIENT AND INFORMED HER OF HER APPOINTMENT.
== END 2018-11-27 16:05 | disposition home or self-care (01) | DRG 254 ==
LOC: MED 13:09 → MTU 22:53
PROVIDERS: ADMIT Internal Medicine; ATTEND Internal Medicine
DX: K58.9 Irritable bowel syndrome, unspecified (principal); R65.10 Systemic inflammatory response syndrome (SIRS) of non-infectious origin without acute organ dysfunction; K21.9 Gastro-esophageal reflux disease without esophagitis; R10.9 Unspecified abdominal pain; E87.6 Hypokalemia; N20.0 Calculus of kidney; Z79.899 Other long term (current) drug therapy; Z90.49 Acquired absence of other specified parts of digestive tract
CPT/HCPCS: 36415; 76817; 80048; 80053; 80305; 81001; 82150; 83690; 84702; 84703; 85025; 86900; 86901; 87081; 87086; 96361; 96372; 96374; 96375; 96376; 99285; J0780; J1885; J1956; J2270; J2405; J2550; J2765; J3010; J3490; J7030; Q0092

== ENCOUNTER 2019-06-10 00:23 | Inpatient (IN) | payer OTHER ==
[~2019-06-10] VITALS: Ht 167.6 cm; Wt 80.7 kg
[~2019-06-10 00:23] MED LIST changes: -METR500T1 PO
[2019-06-10 00:31] VITALS: BP 135/92
--- NOTE | 2019-06-10 00:50 | NUR ---
39 Y/O F BIB FATHER WITH C/O ABDOMINAL WITH INTERMINTENT N/V X2 WEEKS. 10/10 SHARP AND CONSTANT, DOES NOT RADIATE. GENRALIZED ABDOMINAL PAIN. PAIN STARTS ON THE L SIDE OF ABDOMEN THEN TO GENERAL ABDOMEN. BOWEL SOUNDS PRESENT X4 QUADRANTS. PER PT " TOOK BENTYL, PEPCID, AND ZOFRAN BUT IT DIDNT HELP." BED IN LOWEST POSTION. YOLETTE LOCKED. MADE AWARE OF PT STATUS. WILL CONTINUE TO MONITOR.
[2019-06-10] MEDS ORDERED: METOCLOPRAMIDE 10 MG/2 ML INJ VIAL IVP ONE ×2 (01:00→06:30)
[2019-06-10] MEDS ORDERED: KETOROLAC 30 MG/ML VIAL IVP ONE (01:00)
[2019-06-10] MEDS ORDERED: NACL 0.9% 1,000 ML IV ONE ×2 (01:00→02:45)
--- NOTE | 2019-06-10 01:00 | NUR ---
PT ACTIVELY VOMITTING. DR. DURAND MADE AWARE.
[2019-06-10 01:27] LABS: BASOPHILS # (AUTO) 0.1 K/uL (0.00-0.22); BASOPHILS % (AUTO) 0.5 % (0.0-2.0); EOSINOPHILS # (AUTO) 0.2 K/uL (0-0.4); EOSINOPHILS % (AUTO) 0.9 % (0.0-4.0); HEMATOCRIT 42.4 % (36-48); LYMPHOCYTES # (AUTO) 3.7 K/uL (2.5-16.5); LYMPHOCYTES % (AUTO) 20.4 % (20.5-51.1); MEAN CORPUSCULAR HEMOGLOBIN 28 pg (27-31); MEAN CORPUSCULAR HGB CONC 33 g/dL (33-37); MEAN CORPUSCULAR VOLUME 84.3 fL (80-94); MONOCYTES # (AUTO) 0.9 K/uL (0.8-1.0); MONOCYTES % (AUTO) 4.8 % (1.7-9.3); NEUTROPHILS # (AUTO) 13.3 K/uL (1.8-7.7); NEUTROPHILS % (AUTO) 73.4 % (42.2-75.2); PLATELET COUNT (AUTO) 332 K/uL (140-450); RED BLOOD CELL COUNT(AUTO) 5.02 MIL/uL (4.20-5.40); RED CELL DISTRIBUTION WIDTH 15.2 % (11.6-13.7)
[2019-06-10] MEDS ORDERED: ONDANSETRON 4 MG/2 ML VIAL IVP ONE (01:30)
[2019-06-10 01:36] LABS: ANION GAP 18.9 (8-16); CARBON DIOXIDE 21.2 mmol/L (21-32); CREATININE 1.2 mg/dL (0.6-1.3); POTASSIUM 3.1 mmol/L (3.5-5.1)
[2019-06-10 01:39] LABS: WHITE BLOOD COUNT (AUTO) 18.1 K/uL (4.8-10.8)
[2019-06-10 01:42] LABS: ALBUMIN 4.4 g/dL (3.4-5.0); TOTAL BILIRUBIN 0.3 mg/dL (0.0-1.0)
[2019-06-10] MEDS ORDERED: ONDANSETRON 4 MG/5 ML ORASYR ONE (01:44)
[2019-06-10] MEDS ORDERED: POTASSIUM CHL 20 MEQ/NACL 0.9% 1,000 ML IV ONE (01:45)
[2019-06-10] MEDS ORDERED: diphenhydrAMINE 50 MG/ML VIAL IVP ONE (01:50)
[2019-06-10] MEDS ORDERED: PROCHLORPERAZINE 10 MG/2 ML VIAL IVP ONE (01:50)
--- NOTE | 2019-06-10 02:00 | NUR ---
PT CONTINUES WITH ACTIVELY VOMITTING. DR. DURAND MADE AWARE
--- NOTE | 2019-06-10 02:09 | NUR ---
, EVGENY, FATHER AND [phone], RADHA, SON
[2019-06-10] MEDS ORDERED: HALOPERIDOL IM 5 MG/ML VIAL IVP ONE (02:10)
--- NOTE | 2019-06-10 03:00 | NUR ---
EPISODES OF VOMITTING HAS SUBSIDED. NO EPISODES WITHIN LAST HOUR.
[2019-06-10] MEDS ORDERED: cefTRIAXone 1,000 MG VIAL ONE ×2 (03:03)
[2019-06-10 03:06] LABS: APPEARANCE,URINE CLEAR (CLEAR); BILIRUBIN,URINE NEGATIVE (NEGATIVE); BLOOD, URINE NEGATIVE (NEGATIVE); COLOR,URINE YELLOW (YELLOW); LEUKOCYTE ESTERASE ,URINE NEGATIVE (NEGATIVE); NITRITE, URINE NEGATIVE (NEGATIVE); UGLUCOSE NEGATIVE (NEGATIVE)
[2019-06-10] MEDS ORDERED: MORPHINE SULFATE 4 MG/ML SYR IVP ONE ×2 (03:10→05:05)
[2019-06-10] MEDS ORDERED: PIPERACILLIN/TAZOBACTAM 3.375 GM in DEXTROSE 5% 50 ML IV ONE (03:15)
[2019-06-10] MEDS ORDERED: VANCOMYCIN 1,000 MG in DEXTROSE 5% 250 ML IV ONE (03:15)
--- NOTE | 2019-06-10 03:44 | NUR ---
PT TAKEN TO CT [facility] WHEELCHAIR.
[2019-06-10] MEDS ORDERED: PIPERACILLIN/TAZOBACTAM 3.375 GM VIAL IV ONE ×2 (03:48)
--- NOTE | 2019-06-10 04:30 | NUR ---
PT STATED "I'M FEELING A LITTLE BIT BETTER." VSS AT THIS TIME. WILL CONTINUE TO MONITOR.
[2019-06-10] MEDS ORDERED: VANCOMYCIN 1,000 MG VIAL ONE ×2 (04:33)
--- NOTE | 2019-06-10 05:06 | NUR ---
PT STILL HAS 8/[address] DURAND MADE AWARE.
--- NOTE | 2019-06-10 06:11 | NUR ---
PT SEEN WITH EYES CLOSED. VISIBLE CHEST RISE AND FALL NOTED. WILL CONTINUE TO MONITOR.
--- NOTE | 2019-06-10 06:28 | NUR ---
PT AWAKE AND HAVING FEELING NAUSEOUS. DR. DURAND MADE AWARE.
--- NOTE | 2019-06-10 06:50 | NUR ---
PT AMBULATED TO RESTROOM, GAIT STEADY.
--- NOTE | 2019-06-10 07:09 | NUR ---
BEDSIDE REPORT GIVEN TO ALEXANDRE HSIEH. TRANSFER OF CARE AT THIS TIME.
[2019-06-10] MEDS ORDERED: DEXT 5% / NACL 0.45% 1,000 ML IV SCH (07:37)
[2019-06-10] MEDS ORDERED: ACETAMINOPHEN 325 MG TAB PO PRN (07:40)
[2019-06-10] MEDS ORDERED: MORPHINE SULFATE 2 MG/ML SYR IVP PRN ×2 (07:40→16:20)
[2019-06-10] MEDS ORDERED: MORPHINE SULFATE 4 MG/ML SYR IVP PRN ×2 (07:40→16:15)
[2019-06-10] MEDS ORDERED: HYDROcodone/APAP 5/325 MG 1 TAB TAB PO PRN (07:40)
[2019-06-10] MEDS: ONDANSETRON 4 MG/2 ML VIAL IVP PRN ×2 (08:25→12:14)
[2019-06-10 08:28] LABS: BARBITURATE, URINE NEG. ng/ml (NEG <=200); BENZODIAZEPINE, URINE NEG. ng/mL (NEG <=200); CANNABINOID, URINE NEG. ng/mL (NEG <=50); COCAINE, URINE NEG. ng/mL (NEG <=300); OPIATE, URINE NEG. ng/mL (NEG <=2000); PHENCYCLIDINE SCREEN,URINE NEG. ng/mL (NEG <=25)
[2019-06-10] MEDS: LEVOFLOXACIN 500 MG/D5W PREMIX 100 ML IV SCH (08:39)
--- NOTE | 2019-06-10 08:49 | NUR ---
ADMINISTERED MEDS TO PT ORDERED. MEDICATED FOR NAUSEA , NO VOMITING AT THIS TIME. PT SLEEPING COMFORTABLY IN HER BED. NO S/SX OF DISTRESS NOTED. WILL CONTINUE TO MONITOR PT.
[2019-06-10] MEDS: LORazepam 2 MG/ML VIAL IVP PRN ×2 (11:15→21:42)
--- NOTE | 2019-06-10 11:15 | NUR ---
pt administered ativan as ordered. denies morphine for pain. ativan given as ordered for resting pt. sleeping on bed comfortably.waiting for the bed in floor , to get admitted. will continue to monitor pt.
[2019-06-10 12:05] VITALS: BP 141/74
--- NOTE | 2019-06-10 12:05 | NUR ---
Patient will be admitted to care of Dr. Shaw. Admited to [facility] floor. Will go to room 125A. Belongings list completed. Report to RN Bridgette. pt stable at time of transfer of care.
--- NOTE | 2019-06-10 12:05 | NUR ---
RECEIVED PATIENT FROM ER VIA BED, RECEIVED REPORT FROM ALEXANDRE HSIEH. PATIENT SLEEPING IN UPRIGHT POSITION, RESPIRATIONS UNLABORED AT 18 PER MINUTE. NO DISTRESS ON RA. PATIENT RECENTLY RECEIVED ATIVAN IN ER AND IS DROWSY BUT AWAKEN TO VOICE AND OBEYS COMMANDS. AAOX3 AT PRESENT. D5-1/2 NS IS RUNNING AT 100 ML/HR TO LEFT FOREARM 20 GAUGE CATHETER. PATIENT C/O OF NAUSEA BUT DENIES ABDOMINAL PAIN AT THIS TIME. WILL ADMINISTER ZOFRAN. VITALS ARE STABLE.
--- NOTE | 2019-06-10 12:15 | NUR ---
ADMINISTERED 4MG ZOFRAN IV FOR C/O NAUSEA PATIENT WAS VOMITING PRIOR TO ADMINISTRATION BUT HAS STOPPED. ORIENTED PATIENT TO ROOM, AND UNIT, PROVIDED CALL LIGHT, SAFETY PRECAUTIONS IN PLACE. WILL CONTINUE TO MONITOR.
--- NOTE | 2019-06-10 13:43 | NUR ---
PATIENT SLEEPING, NO SIGNS OF DISTRESS AT THIS TIME, PATIENT CONTINUES TO HAVE BOUTS OF NAUSEA AND VOMITING. WILL CONTINUE TO MONITOR.
[2019-06-10] MEDS ORDERED: HYOSCYAMINE 0.125 MG TAB PO PRN (13:50)
--- NOTE | 2019-06-10 14:10 | NUR ---
PATIENT SLEEPING. VISIBLE CHEST RISE, NO DISTRESS. WILL CONTINUE TO MONITOR.
[2019-06-10] MEDS: METOCLOPRAMIDE 10 MG/2 ML INJ VIAL IVP SCH (14:36)
--- NOTE | 2019-06-10 14:36 | NUR ---
PATIENT VOMITING, ADMINISTERED 5MG REGLAN IVP FOR C/O OF CONTINUED NAUSEA. SAFETY PRECAUTIONS IN PLACE, CALL LIGHT IN REACH. PER DOCTOR SKYE GIVE 1800 REGLAN DOSE EARLY, AND GIVE Q6 HR. PATIENT HAS CYCLIC AND INTRACTABLE NAUSEA AND VOMITING.
[2019-06-10] MEDS: POTASSIUM CHL 20 MEQ/D5-1/2NS 1,000 ML IV SCH (14:40)
[2019-06-10] MEDS ORDERED: PROMETHAZINE 25 MG/ML VIAL IVP PRN (15:25)
[2019-06-10 16:00] VITALS: BP 135/69
--- NOTE | 2019-06-10 16:09 | NUR ---
GAVE 12.5 MG PHENERGAN IVP FOR CONTINUED NAUSEA AND VOMITING. PATIENT IS NOT RESPONDING TO MEDICATIONS. DOCTOR AWARE. WILL CONTINUE TO MONITOR.
[2019-06-10] MEDS: SENNA 8.6 MG TAB PO SCH (17:00)
--- NOTE | 2019-06-10 17:00 | NUR ---
PATIENT ACTIVELY VOMITING. HOLDING PO MEDS. PATIENT HAS RECURRENT EPISODES OF CYCLICAL VOMITING. SAFETY PRECAUTIONS IN PLACE.
--- NOTE | 2019-06-10 17:45 | NUR ---
PATIENT URINATED. CLEANED AND DRESSED PATIENT, AMBULATED TO BATHROOM AND PLACED PATIENT SAFELY IN CHAIR. CLEANED AND RE-DRESSED BED WITH FRESH LINENS. RETURNED PATIENT TO BED SAFELY. CALL LIGHT IN REACH, SAFETY PRECAUTIONS IN PLACE. WILL CONTINUE TO ROUND FREQUENTLY.
--- NOTE | 2019-06-10 18:15 | NUR ---
PATIENT SLEEPING. NO DISTRESS AT THIS TIME. WILL CONTINUE TO MONITOR.
--- NOTE | 2019-06-10 18:45 | NUR ---
PATIENT VOMITED ON BEDDING. CLEANED PATIENT AND PROVIDED CLEAN LINEN AND EMESIS BAG. PATIENT IS VERY UNCOMFORTABLE. NAUSEA IS NOT RESPONDING TO MEDICATIONS. IF FLUID INFUSING WELL TO LEFT FOREARM. WILL CONTINUE TO MONITOR.
--- NOTE | 2019-06-10 19:15 | NUR ---
GAVE REPORT TO TECHNICAL ENGINEER RN, PATIENT IN STABLE CONDITION. CURRENTLY SLEEPING.
--- NOTE | 2019-06-10 19:30 | NUR ---
SEEN PT SLEEPING COMFORTABLY. PT IS FALL RISK SECONDARY TO BEING UNSTEADY. BED ALARM ON. IVF INFUSING WELL. CALL LIGHT W/IN REACH.
--- NOTE | 2019-06-10 20:00 | NUR ---
PAGED MD DIRECTOR MACHINE REGARDING PT'S VOMITING EPISODE. WILL AWAIT FOR CALL BACK.
--- NOTE | 2019-06-10 20:05 | NUR ---
SPOKE TO DR GUZMAN AND INFORMED HIM ABOUT THE VOMITING EPISODE AND THAT PHENERGAN IS NOT DUE YET AND ZOFRAN WAS DISCONTINUED. HE SAID NO NEW ORDERS RIGHT NOW.
--- NOTE | 2019-06-10 21:20 | NUR ---
SEEN PT AWAKE. VITAL SIGNS CHECKED. PT COMPLAINING THAT SHE'S BEEN VOMITING FOR DAYS AND WEEKS. PT STATES, "NOTHING'S WORKING FOR ME." "i CAN'T KEEP ANYTHING DOWN." PT STARTED VOMITING BROWN COLORED EMESIS. PT DOESN'T WANT ANY PAIN MEDS DUE TO IT MAKES HER VOMIT MORE. PT WANTS SOMETHING FOR HER VOMITING. WILL MEDICATE ORDERED. INFORMED PT THAT BEDSIDE COMMODE WILL BE PROVIDED DUE TO HER BEING UNSTEADY. PT VERBALIZED UNDERSTANDING. CALL LIGHT W/IN REACH. BED ALARM ON.
[2019-06-10 21:30] VITALS: BP 127/86
--- NOTE | 2019-06-10 21:40 | NUR ---
PT AGITATED AND MEDICATED ORDERED W/ TEACHINGS. ASKED PT IF SHE'S ABLE TO SWALLOW HER ELAVIL. PT SAID "I'LL TRY." ELAVIL GIVEN AND TOOK SIP OF WATER. NO VOMITING AFTERWARDS. PT WENT BACK TO SLEEP. CALL LIGHT W/IN REACH. INSTRUCTED TO CALL WHEN IN NEED. PT SAID "OK."
[2019-06-10] MEDS: AMITRIPTYLINE 25 MG TAB PO SCH (21:41)
--- NOTE | 2019-06-11 01:00 | NUR ---
SEEN PT ASLEEP BUT EASILY AROUSABLE. IVF INFUSING WELL. NO EPISODE OF VOMITING OBSERVED. REGLAN IVP GIVEN ORDERED. TEACHINGS PROVIDED. CALL LIGHT W/IN REACH. WILL CONTINUE TO MONITOR.
[2019-06-11] MEDS: METOCLOPRAMIDE 10 MG/2 ML INJ VIAL IVP SCH ×6 (01:05→23:50)
--- NOTE | 2019-06-11 03:00 | NUR ---
SEEN PT SLEEPING COMFORTABLY. IVF BAG CHANGED. BED ALARM ON. CALL LIGHT W/IN REACH.
[2019-06-11] MEDS: POTASSIUM CHL 20 MEQ/D5-1/2NS 1,000 ML IV SCH ×2 (03:03→10:03)
[2019-06-11 04:00] VITALS: BP 97/56
--- NOTE | 2019-06-11 04:30 | NUR ---
SEEN PT ASLEEP BUT EASILY AROUSABLE. VITAL SIGNS CHECKED. PT DENIES ANY DISCOMFORT AND SAID "I FELT MUCH BETTER." PT GOT UP TO THE COMMODE TO U=URINATE. PT WENT BACK TO BED AFTER. PT DENIES ANY OTHER NEEDS.
[2019-06-11] MEDS ORDERED: PNEUMOCOCCAL VACCINE 23 MCG/0.5 ML VIAL IMVAC SCH (05:30)
--- NOTE | 2019-06-11 06:10 | NUR ---
SAWAKEN PT. IV REGLAN GIVEN ORDERED W/ TEACHINGS. PT SAID "OK". PT WENT BACK TO SLEEP AFTER.
--- NOTE | 2019-06-11 07:13 | NUR ---
WILL ENDORSE CARE TO DAYSHIFT NURSE.
--- NOTE | 2019-06-11 07:14 | NUR ---
Received bedside report from pm nurse [place]. Pt asleep in bed, respirations even & nonlabored, FLACC 0. Left forearm IV intact with ongoing D5 1/2NS + 20mEq KCl @ 100ml/hr. Call light within reach.
[2019-06-11] MEDS: SENNA 8.6 MG TAB PO SCH ×3 (09:00→17:00)
[2019-06-11] MEDS: LEVOFLOXACIN 500 MG/D5W PREMIX 100 ML IV SCH (09:20)
[2019-06-11 09:21] LABS: ALBUMIN 2.9 g/dL (3.4-5.0); ANION GAP 11.6 (8-16); CREATININE 0.8 mg/dL (0.6-1.3); MAGNESIUM 2.2 mg/dL (1.8-2.4); POTASSIUM 3.6 mmol/L (3.5-5.1); TOTAL BILIRUBIN 0.3 mg/dL (0.0-1.0)
--- NOTE | 2019-06-11 09:30 | NUR ---
Dr. Kauffman & Dr. Antonio at bedside to assess pt.
[2019-06-11 11:06] LABS: BASOPHILS % (AUTO) 0.3 % (0.0-2.0); EOSINOPHILS # (AUTO) 0.1 K/uL (0-0.4); EOSINOPHILS % (AUTO) 0.8 % (0.0-4.0); HEMOGLOBIN 11.8 g/dL (12.0-16.0); LYMPHOCYTES # (AUTO) 3.1 K/uL (2.5-16.5); LYMPHOCYTES % (AUTO) 24.8 % (20.5-51.1); MEAN CORPUSCULAR HEMOGLOBIN 28 pg (27-31); MEAN CORPUSCULAR HGB CONC 33 g/dL (33-37); MEAN CORPUSCULAR VOLUME 85.6 fL (80-94); MONOCYTES # (AUTO) 0.7 K/uL (0.8-1.0); MONOCYTES % (AUTO) 5.4 % (1.7-9.3); NEUTROPHILS # (AUTO) 8.6 K/uL (1.8-7.7); NEUTROPHILS % (AUTO) 68.7 % (42.2-75.2); PLATELET COUNT (AUTO) 249 K/uL (140-450); RED BLOOD CELL COUNT(AUTO) 4.21 MIL/uL (4.20-5.40); RED CELL DISTRIBUTION WIDTH 15.6 % (11.6-13.7); WHITE BLOOD COUNT (AUTO) 12.5 K/uL (4.8-10.8)
--- NOTE | 2019-06-11 12:00 | NUR ---
Pt sleeping in bed. Pt woken to administer ordered Reglan. Upon assessment, IV was infiltrated with some redness. Pt stated pain at IV site was minimal. IV fluids which were infusing were discontinued. Warm compress put on left arm. IV on left forearm will be discontinued and a new IV will be placed to administer pt's ordered Reglan and to continue ordered IV fluids.
--- NOTE | 2019-06-11 12:45 | NUR ---
IV placement was attempted twice. 24 g to R forearm and 24 G to L forearm. Both attempt unsuccessful. Utilized vein finder during both IV attempts. Notified charge nurse. Charge nurse will attempt to reinsert IV.
--- NOTE | 2019-06-11 15:00 | NUR ---
Pt sleeping in bed.o signs of acute distress at this time. Will continue to monitor for changes in condition.
[2019-06-11 16:00] VITALS: BP 103/56
--- NOTE | 2019-06-11 16:15 | NUR ---
24G IV started to right hand. 1200 Reglan dose given at this time. Pt in no distress, no c/o discomfort. Resumed D5 1/2 NS + 20mEq KCl resumed at 100ml/hr. Addendum: 06/11/19 at 1622 by Roselyn Capellan RN Clarification: D5 1/2 NS + 20mEq KCl resumed @ 40ml/hr.
--- NOTE | 2019-06-11 18:00 | NUR ---
Pt sleeping in bed. Pt woken up to offer dinner. Pt sat up and began to eat. AAOx4 and no signs of acute distress at this time.
--- NOTE | 2019-06-11 19:18 | NUR ---
Pt endorsed to ALEXANDRE Knapp. Pt sitting comfortably in bed with no signs of acute distress. Pt IV patent with D5 1/2 NS and 20 mEq at 40 ml/hr.
--- NOTE | 2019-06-11 19:30 | NUR ---
RECEIVED BEDSIDE REPORT FROM AM SHIFT RN NATALIE FOR PATIENT'S CONTINUITY OF CARE. PATIENT IS LYING DOWN IN BED, AWAKE, ALERT, ORIENTED X 4, IS ON ROOM AIR, HAS RIGHT HAND 24G D5 1/2 NS WITH 2O MEQ OF POTASSIUM, SKIN IS INTACT, AND DENIES ANY PAIN AT THIS TIME. BED IS IN LOW POSITION, SIDE RAILS ARE UP, AND CALL LIGHT WITHIN REACH. EXPLAINED TO PATIENT ENGINEERING SPECIALIST ROUTINE AND VERBALIZED UNDERSTANDING. WILL MONITOR PATIENT THROUGHOUT SHIFT.
[2019-06-11] MEDS: AMITRIPTYLINE 25 MG TAB PO SCH (21:28)
--- NOTE | 2019-06-11 21:28 | NUR ---
ADMINISTERED SCHEDULED PO MEDICATION ORDERED. INFORMED PATIENT ABOUT MEDICATION. PATIENT ACKNOWLEDGED AND VERBALIZED UNDERSTANDING. PT TOLERATED MEDICATION WELL. WILL CONTINUE TO MONITOR PATIENT.
--- NOTE | 2019-06-11 22:30 | NUR ---
MADE ROUNDS. PATIENT LYING IN BED, READING A BOOK, DENIES PAIN AT THIS TIME. WILL CONTINUE TO MONITOR.
--- NOTE | 2019-06-11 23:50 | NUR ---
ADMINISTERED SCHEDULED IV PUSH MEDIATION ORDERED. PATIENT TOLERATED IT WELL. IV POTASSIUM FINISHED INFUSING. PATIENT DENIES ANY PAIN AT THIS TIME. WILL CONTINUE TO MONITOR PATIENT.
[2019-06-12] VITALS: BP 104/58
--- NOTE | 2019-06-12 02:00 | NUR ---
MADE ROUNDS. PATIENT ASLEEP WITH NO SIGNS OF DISTRESS. WILL CONTINUE TO MONITOR PATIENT.
--- NOTE | 2019-06-12 04:30 | NUR ---
PATIENT LYING DOWN ASLEEP, WITH NO SIGNS OF DISTRESS. WILL CONTINUE TO MONITOR PATIENT.
[2019-06-12] MEDS: METOCLOPRAMIDE 10 MG/2 ML INJ VIAL IVP SCH (05:54)
--- NOTE | 2019-06-12 06:00 | NUR ---
ADMINISTERED SCHEDULED IV PUSH MEDICATION. PATIENT TOLERATED IT WELL, DENIES ANY PAIN AT THIS TIME. WILL ENDORSE PATIENT TO AM SHIFT RN FOR CONTINUITY OF CARE.
--- NOTE | 2019-06-12 06:46 | NUR ---
PATIENT HAS BEEN SCREENED AND CATEGORIZED HIGH NUTRITION RISK. PATIENT WILL BE SEEN WITHIN 1-2 DAYS OF ADMISSION. 06/11/19-06/12/19 DESIREE CROWLEY MS, RDN
--- NOTE | 2019-06-12 07:05 | NUR ---
Received report from pm nurse Ra. Pt resting in bed, awake, verbally responsive, no c/o discomfort. Right hand IV intact & asymptomatic. Call light within reach.
[2019-06-12 08:05] LABS: BASOPHILS % (AUTO) 0.4 % (0.0-2.0); EOSINOPHILS # (AUTO) 0.2 K/uL (0-0.4); EOSINOPHILS % (AUTO) 2.2 % (0.0-4.0); HEMATOCRIT 35.7 % (36-48); HEMOGLOBIN 11.8 g/dL (12.0-16.0); LYMPHOCYTES # (AUTO) 3.1 K/uL (2.5-16.5); LYMPHOCYTES % (AUTO) 32.1 % (20.5-51.1); MEAN CORPUSCULAR HEMOGLOBIN 28 pg (27-31); MEAN CORPUSCULAR HGB CONC 33 g/dL (33-37); MEAN CORPUSCULAR VOLUME 85.2 fL (80-94); MONOCYTES # (AUTO) 0.5 K/uL (0.8-1.0); MONOCYTES % (AUTO) 5.4 % (1.7-9.3); NEUTROPHILS # (AUTO) 5.8 K/uL (1.8-7.7); NEUTROPHILS % (AUTO) 59.9 % (42.2-75.2); PLATELET COUNT (AUTO) 229 K/uL (140-450); RED BLOOD CELL COUNT(AUTO) 4.19 MIL/uL (4.20-5.40); RED CELL DISTRIBUTION WIDTH 15.7 % (11.6-13.7); WHITE BLOOD COUNT (AUTO) 9.7 K/uL (4.8-10.8)
[2019-06-12 08:11] VITALS: BP 102/58
[2019-06-12 08:11] LABS: ANION GAP 11.3 (8-16); CARBON DIOXIDE 25.4 mmol/L (21-32); CREATININE 0.8 mg/dL (0.6-1.3); POTASSIUM 3.7 mmol/L (3.5-5.1)
[2019-06-12] MEDS: LEVOFLOXACIN 500 MG/D5W PREMIX 100 ML IV SCH (08:30)
[2019-06-12] MEDS: SENNA 8.6 MG TAB PO SCH ×2 (09:00→13:00)
[2019-06-12] MEDS: POTASSIUM CHL 20 MEQ/D5-1/2NS 1,000 ML IV SCH (10:03)
--- NOTE | 2019-06-12 11:16 | NUR ---
06/12/19 RD INITIAL ASSESSMENT COMPLETED PLEASE REFER TO NUTRITION ASSESSMENT UNDER CARE ACTIVITY FOR ESTIMATED NUTRITIONAL NEEDS. RD RECOMMENDATIONS: 1. CONTINUE ON CARDIAC DIET TOLERATED. 2. CONSULT RDN PRN. 3. RD WILL F/U 3-5 DAYS; MODERATE RISK. DESIREE CROWLEY MS, RDN
--- NOTE | 2019-06-12 13:45 | NUR ---
Written & verbal discharge instructions provided to pt, verbalized understanding. Pt states she will f/u with PCP tomorrow morning, and still on wait list for GI specialist outpatient f/u. Right hand IV discontinued, catheter intact. Pt discharged at this time. Name band removed. Amb off unit with steady gait accompanied by pt's father. All belongings with pt upon departure.
== END 2019-06-12 13:45 | disposition home or self-care (01) | DRG 254 ==
LOC: MED 00:23 → MMU 05:54
PROVIDERS: ADMIT Internal Medicine Pulmonary Disease; ATTEND Internal Medicine Pulmonary Disease
DX: K58.0 Irritable bowel syndrome with diarrhea (principal); E87.2 Acidosis; E86.0 Dehydration; K31.89 Other diseases of stomach and duodenum; D72.829 Elevated white blood cell count, unspecified; E87.6 Hypokalemia; K21.9 Gastro-esophageal reflux disease without esophagitis; N20.0 Calculus of kidney; K58.9 Irritable bowel syndrome, unspecified; R11.10 Vomiting, unspecified; Z90.49 Acquired absence of other specified parts of digestive tract
CPT/HCPCS: 36415; 71045; 74018; 80048; 80053; 80305; 81003; 82948; 83605; 83690; 83735; 84702; 85025; 86140; 87040; 87081; 87086; 96361; 96365; 96367; 96375; 96376; 99285; J0696; J0780; J1200; J1630; J1885; J1956; J2060; J2270; J2405; J2543; J2550; J2765; J3370; J7030; Q0092; Q0162

== ENCOUNTER 2022-12-05 06:14 | Inpatient (IN) | payer OTHER ==
[~2022-12-05] VITALS: Ht 167.6 cm; Wt 72.6 kg
[2022-12-05 06:25] VITALS: BP 136/99
--- NOTE | 2022-12-05 06:25 | NUR ---
to bed ambulatory
[2022-12-05] MEDS ORDERED: HALOPERIDOL IM 5 MG/ML VIAL IVP ONE (07:20)
[2022-12-05] MEDS ORDERED: NACL 0.9% 1,000 ML IV ONE (07:20)
[2022-12-05] MEDS ORDERED: ONDANSETRON 4 MG/2 ML VIAL IVP ONE ×3 (07:20→13:20)
--- NOTE | 2022-12-05 07:50 | NUR ---
Report received, care assumed, Pt assessed. Dr Padilla at bedside. Pt states abd pain off and on for 2 weeks with N/V. States worse over past 2 hours, states has had this pain before and Has Hx of GERD and IBS
[2022-12-05] MEDS ORDERED: METOCLOPRAMIDE 10 MG/2 ML INJ VIAL IVP ONE (08:10)
[2022-12-05 08:16] LABS: BASOPHILS # (AUTO) 0.1 K/uL (0.00-0.22); BASOPHILS % (AUTO) 0.3 % (0.0-2.0); EOSINOPHILS # (AUTO) 0.2 K/uL (0-0.4); EOSINOPHILS % (AUTO) 0.8 % (0.0-4.0); HEMATOCRIT 48.3 % (36-48); HEMOGLOBIN 16.1 g/dL (12.0-16.0); LYMPHOCYTES # (AUTO) 2.5 K/uL (2.5-16.5); LYMPHOCYTES % (AUTO) 13.1 % (20.5-51.1); MEAN CORPUSCULAR HEMOGLOBIN 30 pg (27-31); MEAN CORPUSCULAR HGB CONC 33 g/dL (33-37); MONOCYTES # (AUTO) 0.7 K/uL (0.8-1.0); MONOCYTES % (AUTO) 3.7 % (1.7-9.3); NEUTROPHILS # (AUTO) 15.9 K/uL (1.8-7.7); NEUTROPHILS % (AUTO) 82.1 % (42.2-75.2); PLATELET COUNT (AUTO) 299 K/uL (140-450); RED BLOOD CELL COUNT(AUTO) 5.43 MIL/uL (4.20-5.40); RED CELL DISTRIBUTION WIDTH 14.2 % (11.6-13.7)
[2022-12-05 08:22] LABS: ALBUMIN 4.6 g/dL (3.4-5.0); ANION GAP 19.4 (8-16); CARBON DIOXIDE 17.6 mmol/L (21-32); TOTAL BILIRUBIN 0.5 mg/dL (0.0-1.0)
[2022-12-05 08:29] LABS: WHITE BLOOD COUNT (AUTO) 19.4 K/uL (4.8-10.8)
--- NOTE | 2022-12-05 08:59 | NUR ---
Pt still vomiting, Dr Padilla notified
--- NOTE | 2022-12-05 09:24 | NUR ---
Pt states still unable to give urine.
[2022-12-05] MEDS ORDERED: KETAMINE 10 MG/ML UD SYR **ER IVP ONE (09:50)
[2022-12-05] MEDS ORDERED: KETAMINE 500 MG/5 ML VIAL ONE (10:13)
--- NOTE | 2022-12-05 10:28 | NUR ---
Ketamine dose given per MD orders. Pt states relief of pain and nausea
--- NOTE | 2022-12-05 12:30 | NUR ---
Pt resting quietly, cont to have intermittent abd pain with vomiting. MD aware. Resp easy, mm pink, no distress at present
[2022-12-05] MEDS ORDERED: KETAMINE 500 MG/5 ML VIAL IVP ONE (13:20)
[2022-12-05] MEDS ORDERED: DICYCLOMINE HCL LIQUID 20 MG, ALUMINUM HYD/MAG/SIMETHICONE 30 ML, LIDOCAINE VISCOUS 2% ... PO ONE ×3 (13:20)
[2022-12-05] MEDS ORDERED: ALUMINUM HYD/MAG/SIMETHICONE 30 ML UDC ONE (13:42)
[2022-12-05] MEDS ORDERED: DICYCLOMINE HCL LIQUID 10 MG/5 ML UDC ONE (13:43)
[2022-12-05 14:03] LABS: APPEARANCE,URINE CLEAR (CLEAR); COLOR,URINE YELLOW (YELLOW); LEUKOCYTE ESTERASE ,URINE NEGATIVE (NEGATIVE)
[2022-12-05 14:04] LABS: BLOOD, URINE NEGATIVE (NEGATIVE); NITRITE, URINE NEGATIVE (NEGATIVE)
[2022-12-05 14:05] LABS: BILIRUBIN,URINE NEGATIVE (NEGATIVE); UGLUCOSE >=1000 (NEGATIVE)
--- NOTE | 2022-12-05 14:20 | NUR ---
Status unchanged, multiple doses of meds, Pt states that she is still having intermitten ABD pain with Vomiting
[2022-12-05] MEDS ORDERED: POTASSIUM CHLORIDE 10 MEQ TABER PO PRN (15:15)
[2022-12-05] MEDS ORDERED: KCL 20 MEQ/WATER INJ PREMIX 200 ML IV PRN (15:15)
[2022-12-05] MEDS ORDERED: HYDROcodone/APAP 5/325 MG 1 TAB TAB PO PRN (15:15)
[2022-12-05] MEDS ORDERED: MAG SULF 2000 MG/WATER PREMIX 50 ML IV PRN (15:15)
[2022-12-05] MEDS ORDERED: ACETAMINOPHEN 325 MG TAB PO PRN (15:15)
[2022-12-05] MEDS ORDERED: MAGNESIUM OXIDE 400 MG TAB PO PRN (15:15)
[2022-12-05 16:06] LABS: BARBITURATE, URINE NEGATIVE ng/ml (NEG <=200); BENZODIAZEPINE, URINE NEGATIVE ng/mL (NEG <=200); CANNABINOID, URINE NEGATIVE ng/mL (NEG <=50); COCAINE, URINE NEGATIVE ng/mL (NEG <=300); OPIATE, URINE NEGATIVE ng/mL (NEG <=2000); PHENCYCLIDINE SCREEN,URINE NEGATIVE ng/mL (NEG <=25)
--- NOTE | 2022-12-05 16:15 | NUR ---
Patient will be admitted to care of Dr Justin. Admited to Med/Tele. Will go to room 119 B. Belongings list completed. Report to ALEXANDRE Ramirez .
[2022-12-05] MEDS ORDERED: METOCLOPRAMIDE 10 MG/2 ML INJ VIAL IVP SCH (17:00)
[2022-12-05] MEDS ORDERED: POTASSIUM CHLORIDE 10 MEQ TABER PO SCH (17:00)
--- NOTE | 2022-12-05 17:30 | NUR ---
receive the patient at 119b aox4 ambulatory roomair . admitting diagnosis of irritabale bowel syndrome . covid negative . will continue to monitor
[2022-12-05] MEDS: DICYCLOMINE 10 MG CAP PO SCH (17:46)
[2022-12-05] MEDS: MORPHINE SULFATE 2 MG/ML SYR IVP PRN (17:46)
[2022-12-05] MEDS: NACL 0.9% 1,000 ML IV SCH (17:56)
--- NOTE | 2022-12-05 18:31 | NUR ---
will endorse to scene shifter rn for continuity of care
--- NOTE | 2022-12-05 19:10 | NUR ---
RECEIVED PT IN BED, ASLEEP, EASILY AROUSABLE BY VERBAL STIMULI. NO ACUTE RESPIRATORY DISTRESS NOTED. SKIN WARM AND DRY TO TOUCH. NO NAUSEA NOR VOMITING NOTED AT THIS TIME. SAFETY PRECAUTION IN PLACE, CALL LIGHT IN REACH.
[2022-12-05] MEDS: ONDANSETRON 4 MG/2 ML VIAL IVP PRN (19:57)
[2022-12-05 20:00] VITALS: BP 135/73
[2022-12-05] MEDS: PANTOPRAZOLE 40 MG INJ VIAL IVP SCH (20:18)
--- NOTE | 2022-12-05 22:49 | NUR ---
PATIENT VOMITED 2X, PRN MEDIATIONS NOT DUE AT THIS TIME. CALL PLACED TO DR. GRULLON, LEFT MESSAGE WITH EXCHANGE AWAITING CALL BACK.
--- NOTE | 2022-12-05 22:53 | NUR ---
SPOKE WITH DR. GRULLON, INFORMED OF PT'S VOMITING EPISODES. NEW ORDER AND WILL BE CARRIED OUT.
[2022-12-05] MEDS ORDERED: METOCLOPRAMIDE 10 MG/2 ML INJ VIAL IVP PRN (22:55)
[2022-12-06] VITALS: BP 144/74
[2022-12-06] MEDS: ONDANSETRON 4 MG/2 ML VIAL IVP PRN ×2 (01:39→19:24)
[2022-12-06] MEDS: NACL 0.9% 1,000 ML IV SCH ×3 (01:39→21:39)
[2022-12-06 04:00] VITALS: BP 138/73
[2022-12-06] MEDS: MORPHINE SULFATE 2 MG/ML SYR IVP PRN (04:43)
--- NOTE | 2022-12-06 06:17 | NUR ---
PATIENT IS ASLEEP. ALL NEEDS ATTENDED TO. NO DISTRESS NOTED. NO NAUSEA NOR VOMITING NOTED AT THIS TIME. SAFETY PRECAUTIONS IN PLACE, CALL LIGHT REMAINS WITHIN REACH.
[2022-12-06] MEDS: DICYCLOMINE 10 MG CAP PO SCH ×3 (06:31→16:48)
[2022-12-06 07:01] LABS: BASOPHILS % (AUTO) 0.1 % (0.0-2.0); HEMATOCRIT 40.1 % (36-48); HEMOGLOBIN 13.3 g/dL (12.0-16.0); LYMPHOCYTES # (AUTO) 1.3 K/uL (2.5-16.5); LYMPHOCYTES % (AUTO) 6.3 % (20.5-51.1); MEAN CORPUSCULAR HEMOGLOBIN 30 pg (27-31); MEAN CORPUSCULAR HGB CONC 33 g/dL (33-37); MEAN CORPUSCULAR VOLUME 88.9 fL (80-94); MONOCYTES % (AUTO) 4.5 % (1.7-9.3); NEUTROPHILS # (AUTO) 19.1 K/uL (1.8-7.7); NEUTROPHILS % (AUTO) 89.1 % (42.2-75.2); PLATELET COUNT (AUTO) 313 K/uL (140-450); RED BLOOD CELL COUNT(AUTO) 4.52 MIL/uL (4.20-5.40); RED CELL DISTRIBUTION WIDTH 14.2 % (11.6-13.7); WHITE BLOOD COUNT (AUTO) 21.4 K/uL (4.8-10.8)
--- NOTE | 2022-12-06 07:04 | NUR ---
RECEIVED PT FROM [address] LIGHT NURSE FOR CONTINUITY OF CARE. PT IN BED ASLEEP. RESPIRATIONS EVEN AND UNLABORED ON RA. IV ON R F/A 20G INFUSING NS @100. CALL LIGHT WITHIN REACH. ALL SAFETY PRECAUTIONS IN PLACE.
[2022-12-06 07:09] LABS: ALBUMIN 3.8 g/dL (3.4-5.0); ANION GAP 10.8 (8-16); CARBON DIOXIDE 26.8 mmol/L (21-32); CREATININE 0.6 mg/dL (0.6-1.3); MAGNESIUM 2.1 mg/dL (1.8-2.4); POTASSIUM 3.6 mmol/L (3.5-5.1); TOTAL BILIRUBIN 0.4 mg/dL (0.0-1.0)
[2022-12-06 08:00] VITALS: BP 145/83
[2022-12-06] MEDS: PANTOPRAZOLE 40 MG INJ VIAL IVP SCH ×2 (09:00→20:28)
[2022-12-06] MEDS ORDERED: PANTOPRAZOLE 40 MG INJ VIAL IVP SCH (09:00)
[2022-12-06] MEDS: ENOXAPARIN 40 MG/0.4 ML SYR SUBQ SCH (09:07)
--- NOTE | 2022-12-06 09:11 | NUR ---
ADMINISTERED DUE MED. PT IN BED AWAKE. NO NAUSEA OR VOMITING. REPORTS SHE DIDNT HAVE ANY BREAKFAST BECAUSE SHE THOUGHT IT MIGHT MAKE HER NAUSEOUS. NO DISTRESS NOTED. PT USING PHONE IN BED. CALL LIGHT WITHIN REACH. ALL SAFETY PRECAUTIONS IN PLACE.
[2022-12-06 12:00] VITALS: BP 129/75
--- NOTE | 2022-12-06 12:30 | NUR ---
SCHEDULED ORAL MED GIVEN. PT TOLERATING WELL.
[2022-12-06] MEDS: METOCLOPRAMIDE 10 MG/2 ML INJ VIAL IVP SCH ×3 (13:00→23:22)
--- NOTE | 2022-12-06 13:56 | NUR ---
PT IN BED SLEEPING. VISIBLE CHEST RISE/FALL. CALL LIGHT WITHIN REACH.
[2022-12-06 16:00] VITALS: BP 140/80
--- NOTE | 2022-12-06 16:48 | NUR ---
ADMINISTERED SCHEDULED MED. NO COMPLAINS OF NAUSEA/VOMITING.
--- NOTE | 2022-12-06 17:00 | NUR ---
PT VOMITING X1. REPORTS NO LONGER FEELING NAUSEOUS.
--- NOTE | 2022-12-06 18:23 | NUR ---
PT EATING DINNER, STATES "NO MORE VOMITING BUT CANNOT FINISH MY DINNER BECAUSE IT IS GOING TO MAKE ME NAUSEOUS."
--- NOTE | 2022-12-06 19:09 | NUR ---
ENDORSED PT TO REMOTE SENSING ADVISOR NURSE FOR CONTINUITY OF CARE. PT IN STABLE CONDITION.
--- NOTE | 2022-12-06 19:15 | NUR ---
RECEIVED PT IN BED, ASLEEP. NO S/SX OF PAIN NOR DISCOMFORT. NO S/SX OF ACUTE RESPIRATORY DISTRESS. SKIN WARM AND DRY TO TOUCH. BED IN THE LOWEST AND LOCKED POSITION FOR SAFETY, CALL LIGHT IN REACH.
[2022-12-06 20:00] VITALS: BP 146/77
--- NOTE | 2022-12-06 22:30 | NUR ---
CALL PLACED TO DR. HAWLEY, FIBER HEEL PIECE SHAPER FOR DR. GRULLON REGARDING PT FEELING ANXIOUS AND WANTS SOMETHING FOR SLEEP, REQUESTING BENADRYL WHICH HELPS HER FALL ASLEEP. LEFT MESSAGE WITH THE EXCHANGE, AWAITING CALL BACK.
[2022-12-06] MEDS ORDERED: MELATONIN 3 MG TAB PO PRN (23:00)
--- NOTE | 2022-12-06 23:01 | NUR ---
DR. HAWLEY CALLED BACK. NEW ORDER GIVEN AND WILL BE CARRIED OUT.
[2022-12-07] VITALS: BP 147/76
--- NOTE | 2022-12-07 01:00 | NUR ---
PATIENT IS ASLEEP. NO S/SX OF PAIN NOR DISCOMFORT. CALL LIGHT IN REACH.
[2022-12-07] MEDS: MORPHINE SULFATE 2 MG/ML SYR IVP PRN ×2 (03:26→16:47)
[2022-12-07 04:00] VITALS: BP 127/74
[2022-12-07] MEDS: METOCLOPRAMIDE 10 MG/2 ML INJ VIAL IVP SCH ×3 (05:06→18:00)
[2022-12-07 05:41] LABS: BASOPHILS % (AUTO) 0.1 % (0.0-2.0); EOSINOPHILS % (AUTO) 0.1 % (0.0-4.0); HEMOGLOBIN 13.9 g/dL (12.0-16.0); LYMPHOCYTES # (AUTO) 1.9 K/uL (2.5-16.5); LYMPHOCYTES % (AUTO) 11.9 % (20.5-51.1); MEAN CORPUSCULAR HEMOGLOBIN 30 pg (27-31); MEAN CORPUSCULAR HGB CONC 33 g/dL (33-37); MEAN CORPUSCULAR VOLUME 89.8 fL (80-94); MONOCYTES # (AUTO) 0.8 K/uL (0.8-1.0); MONOCYTES % (AUTO) 4.9 % (1.7-9.3); NEUTROPHILS # (AUTO) 13.1 K/uL (1.8-7.7); PLATELET COUNT (AUTO) 270 K/uL (140-450); RED BLOOD CELL COUNT(AUTO) 4.67 MIL/uL (4.20-5.40); RED CELL DISTRIBUTION WIDTH 14.2 % (11.6-13.7); WHITE BLOOD COUNT (AUTO) 15.8 K/uL (4.8-10.8)
[2022-12-07] MEDS: DICYCLOMINE 10 MG CAP PO SCH ×3 (06:33→16:43)
--- NOTE | 2022-12-07 06:46 | NUR ---
PATIENT IS ASLEEP. ALL NEEDS ATTENDED TO. NO ACUTE RESPIRATORY DISTRESS. SAFETY PRECAUTIONS IN PLACE, CALL LIGHT IN REACH.
[2022-12-07 07:04] LABS: ALBUMIN 4.1 g/dL (3.4-5.0); ANION GAP 14.6 (8-16); CARBON DIOXIDE 26.1 mmol/L (21-32); CREATININE 0.7 mg/dL (0.6-1.3); MAGNESIUM 2.1 mg/dL (1.8-2.4); POTASSIUM 3.7 mmol/L (3.5-5.1); TOTAL BILIRUBIN 0.4 mg/dL (0.0-1.0)
--- NOTE | 2022-12-07 07:10 | NUR ---
RECEIVED PT FROM RN RADIATION NURSE FOR CONTINUITY OF CARE.
[2022-12-07 08:00] VITALS: BP 101/60
[2022-12-07] MEDS: NACL 0.9% 1,000 ML IV SCH ×3 (08:08→22:40)
[2022-12-07] MEDS: ENOXAPARIN 40 MG/0.4 ML SYR SUBQ SCH (08:12)
--- NOTE | 2022-12-07 08:16 | NUR ---
PT AWAKE IN BED IV ON R F/A INFUSING NS @ 100, SKIN WARM AND DRY. RESPIRATIONS EVEN AND UNLABORED. NO DISTRESS NOTED. NO C/O NAUSEA. SCHEDULED LOVENOX ADMINISTERED. PT EATING BREAKFAST. ALL SAFETY PRECAUTIONS IN PLACE. CALL LIGHT WITHIN REACH.
--- NOTE | 2022-12-07 09:30 | NUR ---
PATIENT HAS BEEN SCREENED AND CATEGORIZED HIGH NUTRITION RISK. PATIENT WILL BE SEEN WITHIN 1-2 DAYS OF ADMISSION. 12/05/22-12/07/[address] REFERRAL RECEIVED FOR VOMITING >3 DAYS
[2022-12-07] MEDS: PANTOPRAZOLE 40 MG INJ VIAL IVP SCH ×2 (09:52→21:34)
--- NOTE | 2022-12-07 10:41 | NUR ---
MAKING ROUNDS. PT ASLEEP IN BED. VISIBLE CHEST RISE/FALL. CALL LIGHT WITHIN REACH.
[2022-12-07] MEDS ORDERED: LORazepam 0.5 MG TAB PO PRN (11:45)
[2022-12-07 12:00] VITALS: BP 148/85
--- NOTE | 2022-12-07 12:35 | NUR ---
PT VOMITING X1. REFUSED LUNCH TRAY.
[2022-12-07] MEDS: ONDANSETRON 4 MG/2 ML VIAL IVP PRN (14:08)
--- NOTE | 2022-12-07 14:10 | NUR ---
PT C/O NAUSEA AND VOMITING X1, AND ANXIETY. ADMINISTERED ORAL MED, PT TOLERATING WELL. ZOFRAN IV GIVEN BY ALEXANDRE RAMOS.
--- NOTE | 2022-12-07 15:58 | NUR ---
12/07/22 RD INITIAL ASSESSMENT COMPLETED. PLEASE REFER TO NUTRITION ASSESSMENT UNDER CARE ACTIVITY FOR ESTIMATED NUTRITIONAL NEEDS. 1. CONTINUE FULL LIQUID/LOW FAT DIET TOLERATED. 2. MONITOR PO INTAKE AND GI SYMPTOMS 3. RD TO FOLLOW-UP 2-3 DAYS, HIGH RISK DIANE SOTOMAYOR, JUAN PABLO
[2022-12-07 16:00] VITALS: BP 139/80
--- NOTE | 2022-12-07 17:00 | NUR ---
ATTEMPTED IV PLACEMENT X2. ATTEMPTS UNSUCCESSFUL.
--- NOTE | 2022-12-07 18:08 | NUR ---
NURSE RAMOS ATTEMPTED IV INSERTION X2 TRIES, ATTEMPTS UNSUCCESSFUL.
--- NOTE | 2022-12-07 19:21 | NUR ---
ENDORSED PT TO AIR CONDITIONING SUPERVISOR NURSE FOR CONTINUITY OF CARE. PT IN STABLE CONDITION.
--- NOTE | 2022-12-07 19:30 | NUR ---
RECEIVED REPORT FROM DAY SHIFT NURSE FOR CONTINUITY OF CARE. PATIENT IS A&O X4. PATIENT IS ON ROOM AIR, BREATHING IS NORMAL WITH SYMMETRICAL RISE AND FALL OF CHEST. PATIENT CURRENTLY HAS NO IV, NO FLUIDS RUNNING AT THIS TIME (SALINE LOCKED) DUE TO PREVIOUS IV COMING OUT. PATIENT SLEEPING IN BED, LYING SUPINE. BED IS IN LOWEST POSITION, WHEELS LOCKED, CALL LIGHT IN PLACE. WILL CONTINUE TO OBSERVE PATIENT.
[2022-12-07 20:00] VITALS: BP 93/47
--- NOTE | 2022-12-07 22:00 | NUR ---
NEW IV WAS PLACED IN PATIENT BY CHARGE NURSE KOURTNEY. NEW IV IS A 24G R HAND. 2100 IVP MEDICATION WAS GIVEN TO PATIENT SUCCESSFULLY WITHOUT ANY ISSUES. IV IS RUNNING NS AT 100. WILL CONTINUE TO OBSERVE PATIENT.
[2022-12-08] MEDS: METOCLOPRAMIDE 10 MG/2 ML INJ VIAL IVP SCH ×4 (00:26→18:32)
[2022-12-08 05:25] LABS: BASOPHILS % (AUTO) 0.2 % (0.0-2.0); EOSINOPHILS % (AUTO) 0.4 % (0.0-4.0); HEMATOCRIT 36.5 % (36-48); HEMOGLOBIN 12.4 g/dL (12.0-16.0); LYMPHOCYTES # (AUTO) 3.4 K/uL (2.5-16.5); LYMPHOCYTES % (AUTO) 32.1 % (20.5-51.1); MEAN CORPUSCULAR HEMOGLOBIN 30 pg (27-31); MEAN CORPUSCULAR HGB CONC 34 g/dL (33-37); MEAN CORPUSCULAR VOLUME 88.6 fL (80-94); MONOCYTES # (AUTO) 0.7 K/uL (0.8-1.0); MONOCYTES % (AUTO) 6.9 % (1.7-9.3); NEUTROPHILS # (AUTO) 6.4 K/uL (1.8-7.7); NEUTROPHILS % (AUTO) 60.4 % (42.2-75.2); PLATELET COUNT (AUTO) 243 K/uL (140-450); RED BLOOD CELL COUNT(AUTO) 4.11 MIL/uL (4.20-5.40); RED CELL DISTRIBUTION WIDTH 14.2 % (11.6-13.7); WHITE BLOOD COUNT (AUTO) 10.6 K/uL (4.8-10.8)
--- NOTE | 2022-12-08 05:30 | NUR ---
PATIENT'S IV CAME OUT AGAIN LAST NIGHT. PATIENT WAS GIVEN NEW BLANKETS AND PATIENT'S HAND WAS CLEANED UP DUE TO BLOOD FROM WHERE IV CAME OUT. NEW IV WAS INSERTED BY CHARGE NURSE KOURTNEY. IV IS IN THE SAME GAUGE AND IN THE SAME PLACE BEFORE; 24G R HAND. PATIENT HAS SLEPT THROUGHOUT THE NIGHT. WILL CONTINUE TO OBSERVE PATIENT.
[2022-12-08 05:52] LABS: ALBUMIN 3.3 g/dL (3.4-5.0); ANION GAP 13.3 (8-16); CARBON DIOXIDE 27.9 mmol/L (21-32); CREATININE 0.7 mg/dL (0.6-1.3); POTASSIUM 3.2 mmol/L (3.5-5.1); TOTAL BILIRUBIN 0.4 mg/dL (0.0-1.0)
[2022-12-08] MEDS: DICYCLOMINE 10 MG CAP PO SCH ×3 (06:39→16:30)
--- NOTE | 2022-12-08 07:33 | NUR ---
ENDORSED TO DAY SHIFT NURSE ADZE FOR CONTINUITY OF CARE. PATIENT IS STABLE.
[2022-12-08 08:00] VITALS: BP 119/69
[2022-12-08] MEDS: PANTOPRAZOLE 40 MG INJ VIAL IVP SCH ×2 (09:36→21:00)
[2022-12-08] MEDS: ENOXAPARIN 40 MG/0.4 ML SYR SUBQ SCH (09:39)
[2022-12-08] MEDS: NACL 0.9% 1,000 ML IV SCH (13:15)
[2022-12-08 16:00] VITALS: BP 119/69
[2022-12-08 20:00] VITALS: BP 140/90
[2022-12-09] MEDS: METOCLOPRAMIDE 10 MG/2 ML INJ VIAL IVP SCH ×2 (06:00)
[2022-12-09 06:09] LABS: BASOPHILS % (AUTO) 0.3 % (0.0-2.0); EOSINOPHILS # (AUTO) 0.2 K/uL (0-0.4); EOSINOPHILS % (AUTO) 1.7 % (0.0-4.0); HEMATOCRIT 38.5 % (36-48); HEMOGLOBIN 13.1 g/dL (12.0-16.0); LYMPHOCYTES % (AUTO) 26.8 % (20.5-51.1); MEAN CORPUSCULAR HEMOGLOBIN 30 pg (27-31); MEAN CORPUSCULAR HGB CONC 34 g/dL (33-37); MEAN CORPUSCULAR VOLUME 87.8 fL (80-94); MONOCYTES # (AUTO) 0.8 K/uL (0.8-1.0); MONOCYTES % (AUTO) 6.9 % (1.7-9.3); NEUTROPHILS # (AUTO) 7.1 K/uL (1.8-7.7); NEUTROPHILS % (AUTO) 64.3 % (42.2-75.2); PLATELET COUNT (AUTO) 250 K/uL (140-450); RED BLOOD CELL COUNT(AUTO) 4.39 MIL/uL (4.20-5.40); WHITE BLOOD COUNT (AUTO) 11.1 K/uL (4.8-10.8)
[2022-12-09 06:34] LABS: ALBUMIN 3.3 g/dL (3.4-5.0); ANION GAP 10.3 (8-16); CARBON DIOXIDE 28.8 mmol/L (21-32); CREATININE 0.7 mg/dL (0.6-1.3); POTASSIUM 3.1 mmol/L (3.5-5.1); TOTAL BILIRUBIN 0.4 mg/dL (0.0-1.0)
--- NOTE | 2022-12-09 07:20 | NUR ---
ASSUMED CONTINUITY OF CARE. INITIAL ASSESSMENT DONE. PT. NO IV ACCESS. EXPLAINED DIAGNOSIS, PLAN OF CARE, PAIN MANAGEMENT TEACHING, DIET, USE OF CALL LIGHT/BED/TV/BATHROOM. VERBALIZED UNDERSTANDING. CALL LIGHT WITHIN REACH.
--- NOTE | 2022-12-09 07:45 | NUR ---
TRIED IV INSERTION X2 BUT WAS UNSUCCESSFUL. PT. REFUSED IV INSERTION ANYMORE. PT. STATES "I'M ALREADY HAD ENOUGH, THEY TRIED 5 TIMES LAST NIGHT AND CAN'T GET IT."
[2022-12-09 08:00] VITALS: BP 105/53
[2022-12-09] MEDS: DICYCLOMINE 10 MG CAP PO SCH ×2 (08:20→11:42)
--- NOTE | 2022-12-09 08:27 | NUR ---
PAGED DR. MUNGUIA REGARDING PT. NO IV ACCESS AND RECOMMEND TO CHANGE IV MEDS TO P.O..
[2022-12-09] MEDS ORDERED: PANTOPRAZOLE 40 MG TABEC PO SCH (09:00)
[2022-12-09] MEDS: ENOXAPARIN 40 MG/0.4 ML SYR SUBQ SCH (09:36)
[2022-12-09] MEDS ORDERED: METOCLOPRAMIDE 10 MG TAB PO SCH (12:00)
--- NOTE | 2022-12-09 15:05 | NUR ---
D/C HOME VIA WHEELCHAIR. IN STABLE CONDITION. INFORMED CHARGE NURSE ERNIE CARREON.
== END 2022-12-09 15:05 | disposition home or self-care (01) | DRG 243 ==
LOC: MED 06:14 → MTU 15:16
PROVIDERS: ADMIT Internal Medicine; ATTEND Internal Medicine
DX: K21.9 Gastro-esophageal reflux disease without esophagitis (principal); R65.10 Systemic inflammatory response syndrome (SIRS) of non-infectious origin without acute organ dysfunction; E87.6 Hypokalemia; K58.9 Irritable bowel syndrome, unspecified; R11.15 Cyclical vomiting syndrome unrelated to migraine; Z20.822 Contact with and (suspected) exposure to COVID-19
CPT/HCPCS: 36415; 71045; 80053; 80305; 81003; 83690; 83735; 85025; 96374; 96375; 96376; 99285; C9113; J1630; J1650; J2270; J2405; J2765; J8597; Q0092

== ENCOUNTER 2023-01-01 19:32 | Emergency (ER) | payer OTHER ==
[~2023-01-01] VITALS: Ht 167.6 cm; Wt 72.6 kg
[2023-01-01 19:32] VITALS: BP 133/90
--- NOTE | 2023-01-01 19:38 | NUR ---
Dr. Palma examining patient at [facility].
[2023-01-01 21:12] LABS: BASOPHILS % (AUTO) 0.1 % (0.0-2.0); HEMATOCRIT 43.8 % (36-48); HEMOGLOBIN 14.7 g/dL (12.0-16.0); LYMPHOCYTES # (AUTO) 1.6 K/uL (2.5-16.5); LYMPHOCYTES % (AUTO) 9.4 % (20.5-51.1); MEAN CORPUSCULAR HEMOGLOBIN 29 pg (27-31); MEAN CORPUSCULAR HGB CONC 33 g/dL (33-37); MONOCYTES # (AUTO) 0.7 K/uL (0.8-1.0); MONOCYTES % (AUTO) 4.2 % (1.7-9.3); NEUTROPHILS # (AUTO) 14.7 K/uL (1.8-7.7); NEUTROPHILS % (AUTO) 86.3 % (42.2-75.2); PLATELET COUNT (AUTO) 341 K/uL (140-450); RED BLOOD CELL COUNT(AUTO) 4.98 MIL/uL (4.20-5.40); RED CELL DISTRIBUTION WIDTH 14.2 % (11.6-13.7); WHITE BLOOD COUNT (AUTO) 17.1 K/uL (4.8-10.8)
--- NOTE | 2023-01-01 21:35 | NUR ---
PT TO 2
[2023-01-01 21:36] LABS: ALBUMIN 4.2 g/dL (3.4-5.0); ANION GAP 15.3 (8-16); CARBON DIOXIDE 25.1 mmol/L (21-32); CREATININE 0.9 mg/dL (0.6-1.3); POTASSIUM 3.4 mmol/L (3.5-5.1); TOTAL BILIRUBIN 0.7 mg/dL (0.0-1.0)
[2023-01-01 21:43] LABS: BILIRUBIN,URINE NEGATIVE (NEGATIVE); BLOOD, URINE 3+ (NEGATIVE); COLOR,URINE YELLOW (YELLOW); LEUKOCYTE ESTERASE ,URINE TRACE (NEGATIVE); NITRITE, URINE NEGATIVE (NEGATIVE); PH,URINE 7.5 (5.0-9.0); UGLUCOSE NEGATIVE (NEGATIVE)
[2023-01-01 21:52] LABS: APPEARANCE,URINE HAZY (CLEAR)
[2023-01-01 22:01] LABS: WBC,URINE 0-5 /HPF (0-5)
--- NOTE | 2023-01-01 22:12 | NUR ---
Dr. Hancock examining patient.
[2023-01-01] MEDS ORDERED: diphenhydrAMINE 50 MG/ML VIAL IVP ONE (22:20)
[2023-01-01] MEDS ORDERED: LORazepam 2 MG/ML VIAL IVP ONE (22:20)
[2023-01-01] MEDS ORDERED: METOCLOPRAMIDE 10 MG/2 ML INJ VIAL IVP ONE (22:20)
[2023-01-01] MEDS ORDERED: NACL 0.9% 1,000 ML IV ONE (22:20)
[2023-01-02] MEDS ORDERED: FAMO-90 PO ×2 (00:59→01:43)
[2023-01-02] MEDS ORDERED: HYDR25CA1 PO ×2 (00:59→01:43)
[2023-01-02] MEDS ORDERED: METO-485 PO ×2 (00:59→01:43)
[2023-01-02] MEDS ORDERED: NITR100C7 PO ×2 (01:01→01:43)
[2023-01-02 01:45] VITALS: BP 128/63
--- NOTE | 2023-01-02 01:45 | NUR ---
Patient discharged with v/s stable. Written and verbal after care instructions given and explained. Patient verbalized understanding. Ambulatory with steady gait. All questions addressed prior to discharge. Advised to follow up with PMD.
--- NOTE | 2023-01-02 14:36 | NUR ---
SAMUEL ANTONIO: CALLED [facility] OFF[facility] LOCATED [place] [id number] [facility] [address], [facility] [id number] AND SPOKE WITH MT FERNANDEZ WHICH INFORMED ME PT HAD ALREADY MADE APPOINTMENT FOR 12/24/2022
== END 2023-01-02 01:45 | disposition home or self-care (01) ==
LOC: MED 19:32
DX: R11.15 Cyclical vomiting syndrome unrelated to migraine (principal); N39.0 Urinary tract infection, site not specified; K21.9 Gastro-esophageal reflux disease without esophagitis; Z79.899 Other long term (current) drug therapy; Z79.2 Long term (current) use of antibiotics
CPT/HCPCS: 36415; 80053; 81001; 81025; 83690; 85025; 96361; 96374; 96375; 99284; J1200; J2060; J2765

== ENCOUNTER 2023-01-07 16:39 | Inpatient (IN) | payer OTHER ==
[~2023-01-07] VITALS: Ht 162.6 cm; Wt 72.6 kg
[~2023-01-07 16:39] MED LIST changes: +FAMO-90 PO; +HYDR25CA1 PO; +METO-485 PO; +NITR100C7 PO
[2023-01-07 16:44] VITALS: BP 106/64
[2023-01-07] MEDS ORDERED: LORazepam 2 MG/ML VIAL IVP ONE ×2 (17:05→21:40)
[2023-01-07] MEDS ORDERED: diphenhydrAMINE 50 MG/ML VIAL IVP ONE (17:05)
[2023-01-07] MEDS ORDERED: NACL 0.9% 1,000 ML IV ONE (17:05)
[2023-01-07] MEDS ORDERED: HALOPERIDOL IM 5 MG/ML VIAL IVP ONE (17:05)
[2023-01-07] MEDS ORDERED: ONDANSETRON 4 MG/2 ML VIAL IVP ONE ×2 (17:05→19:05)
[2023-01-07 17:25] LABS: BASOPHILS % (AUTO) 0.2 % (0.0-2.0); EOSINOPHILS % (AUTO) 0.1 % (0.0-4.0); HEMATOCRIT 44.9 % (36-48); HEMOGLOBIN 15.2 g/dL (12.0-16.0); LYMPHOCYTES # (AUTO) 0.8 K/uL (2.5-16.5); LYMPHOCYTES % (AUTO) 4.4 % (20.5-51.1); MEAN CORPUSCULAR HEMOGLOBIN 30 pg (27-31); MEAN CORPUSCULAR HGB CONC 34 g/dL (33-37); MONOCYTES # (AUTO) 0.3 K/uL (0.8-1.0); MONOCYTES % (AUTO) 1.7 % (1.7-9.3); NEUTROPHILS # (AUTO) 16.2 K/uL (1.8-7.7); NEUTROPHILS % (AUTO) 93.6 % (42.2-75.2); PLATELET COUNT (AUTO) 329 K/uL (140-450); RED BLOOD CELL COUNT(AUTO) 5.16 MIL/uL (4.20-5.40); RED CELL DISTRIBUTION WIDTH 14.2 % (11.6-13.7); WHITE BLOOD COUNT (AUTO) 17.3 K/uL (4.8-10.8)
--- NOTE | 2023-01-07 17:30 | NUR ---
Patient ambulated to bed 09 with steady even gait. gambling monitor in place
--- NOTE | 2023-01-07 17:34 | NUR ---
Urine sample collected walked to lab and handed to CPT. Log book complete.
--- NOTE | 2023-01-07 17:40 | NUR ---
42/F BIB self from home c/o abdominal pain, nausea, vomiting x 1 month. Patient A&Ox4, ambulatory, reports seen at [facility] ER 1 week ago for similar symptoms and diagnosed with UTI. Patient states vomiting >10 episodes non-bloody emesis. Patient reports generalized abdominal pain 10/10, stabbing/constant, non-radiating pain. Pt also reports foul urine odor. Patient states Tylenol today without relief. Last BM: today, hard/brown. Denies dysuria, feer, chills, diarrhea, urinary symptoms, flank pain, back pain. Pt placed onto cardiac cath lab manager. Bed locked in lowest position, side rails x 1. PMH: gastritis, IBS, cyclic vomiting disorder, GERD, Meds: zofran, macrobid, pepcid, hydroxyzine, reglan, dicyclomine NKDA Sx: Denies
[2023-01-07 17:44] LABS: ALBUMIN 4.3 g/dL (3.4-5.0); ANION GAP 16.3 (8-16); CREATININE 0.9 mg/dL (0.6-1.3); POTASSIUM 3.3 mmol/L (3.5-5.1); TOTAL BILIRUBIN 0.6 mg/dL (0.0-1.0)
[2023-01-07 17:53] LABS: APPEARANCE,URINE CLEAR (CLEAR); BILIRUBIN,URINE NEGATIVE (NEGATIVE); BLOOD, URINE NEGATIVE (NEGATIVE); COLOR,URINE YELLOW (YELLOW); LEUKOCYTE ESTERASE ,URINE NEGATIVE (NEGATIVE); NITRITE, URINE NEGATIVE (NEGATIVE); UGLUCOSE NEGATIVE (NEGATIVE)
--- NOTE | 2023-01-07 18:16 | NUR ---
Patient to CT by jeremi
--- NOTE | 2023-01-07 18:25 | NUR ---
Patient returned from CT by jeremi and placed back onto quality assurance monitor final.
--- NOTE | 2023-01-07 19:18 | NUR ---
Report and transfer of care endorsed to ALEXANDRE Pineda.
--- NOTE | 2023-01-07 20:20 | NUR ---
Teleneuro evaluating patient at this time
[2023-01-07] MEDS ORDERED: metroNIDAZOLE 500 MG/NS PREMIX 100 ML IV ONE (21:40)
--- NOTE | 2023-01-07 22:00 | NUR ---
Swabs collected sent to lab
[2023-01-07] MEDS: LACTATED RINGERS 1,000 ML IV SCH (22:30)
[2023-01-07] MEDS ORDERED: ZOLPIDEM 5 MG TAB PO PRN (22:30)
[2023-01-07] MEDS ORDERED: ACETAMINOPHEN 325 MG TAB PO PRN (22:30)
--- NOTE | 2023-01-07 22:53 | NUR ---
Pt noted resting comfortably at this time. No nausea or vomiting.
--- NOTE | 2023-01-07 23:34 | NUR ---
Report given to Anastasia SCHROEDER for transfer of care
[2023-01-07] MEDS ORDERED: cefTRIAXone 1,000 MG VIAL ONE (23:54)
[2023-01-08] MEDS: ONDANSETRON 4 MG/2 ML VIAL IVP PRN ×3 (00:41→10:47)
--- NOTE | 2023-01-08 01:15 | NUR ---
ADMISSION ASSESSMENT COMPLETED PT DROWSY A/OX4 ORIENTED TO PLAN OF CARE PT ENDORSED SHE FELT NAUSEATED AND VOMITED APPROX 200ML GREEN CLEAR ZOFRAN GIVE ORDERED CALL LIGHT IN REACH DENIES ABDOMINAL PAIN WILL CONTINUE TO MONITOR AND ASSESS
[2023-01-08 04:00] VITALS: BP 139/80
--- NOTE | 2023-01-08 04:21 | NUR ---
PT VOMITED X2 MD PAGED AWAITING A RETURN CALL, PER EXCHANGE MD MCDONALD IS MONEY MANAGER
[2023-01-08] MEDS: metroNIDAZOLE 500 MG/NS PREMIX 100 ML IV SCH ×3 (05:11→20:38)
--- NOTE | 2023-01-08 07:27 | NUR ---
RECEIVED PATIENT FROM HEAVY FORGER HELPER NURSE.PATIENT IN NPO STATUS.PATIENT IN BED, VERBALLY RESPONSES.CALL LIGHT WITHIN REACH.ALL SAFETY MEASURES IN PLACE.POC DISCUSSED WITH THE HEAVY FORGER HELPER NURSE.WILL CONTINUE TO MONITOR.
[2023-01-08 07:38] LABS: BASOPHILS % (AUTO) 0.1 % (0.0-2.0); EOSINOPHILS % (AUTO) 0.1 % (0.0-4.0); HEMATOCRIT 40.4 % (36-48); HEMOGLOBIN 13.7 g/dL (12.0-16.0); LYMPHOCYTES # (AUTO) 1.9 K/uL (2.5-16.5); LYMPHOCYTES % (AUTO) 10.8 % (20.5-51.1); MEAN CORPUSCULAR HEMOGLOBIN 30 pg (27-31); MEAN CORPUSCULAR HGB CONC 34 g/dL (33-37); MEAN CORPUSCULAR VOLUME 87.2 fL (80-94); MONOCYTES # (AUTO) 1.2 K/uL (0.8-1.0); MONOCYTES % (AUTO) 7.1 % (1.7-9.3); NEUTROPHILS # (AUTO) 14.1 K/uL (1.8-7.7); NEUTROPHILS % (AUTO) 81.9 % (42.2-75.2); PLATELET COUNT (AUTO) 303 K/uL (140-450); RED BLOOD CELL COUNT(AUTO) 4.63 MIL/uL (4.20-5.40); RED CELL DISTRIBUTION WIDTH 14.3 % (11.6-13.7); WHITE BLOOD COUNT (AUTO) 17.2 K/uL (4.8-10.8)
[2023-01-08 07:48] LABS: ALBUMIN 3.7 g/dL (3.4-5.0); ANION GAP 11.9 (8-16); CARBON DIOXIDE 29.2 mmol/L (21-32); CREATININE 0.7 mg/dL (0.6-1.3); POTASSIUM 3.1 mmol/L (3.5-5.1); TOTAL BILIRUBIN 0.6 mg/dL (0.0-1.0)
[2023-01-08 08:00] VITALS: BP 131/95
--- NOTE | 2023-01-08 09:04 | NUR ---
PATIENT HAS BEEN SCREENED AND CATEGORIZED MODERATE NUTRITION RISK. PATIENT WILL BE SEEN WITHIN 3-5 DAYS OF ADMISSION. REVIEWED BY JACOBO GUZMAN RD
[2023-01-08] MEDS: HYDROcodone/APAP 5/325 MG 1 TAB TAB PO PRN (09:18)
--- NOTE | 2023-01-08 09:30 | NUR ---
PATIENT VERBALIZES COMPLAINS OF NAUSEA AND VOMITING. MEDICATED WITH PRN MEDS. WILL CONTINUE TO MONITOR DISTRESS.
[2023-01-08] MEDS: LACTATED RINGERS 1,000 ML IV SCH ×2 (11:11→21:46)
[2023-01-08] MEDS ORDERED: POTASSIUM CHLORIDE 10 MEQ TABER PO PRN ×2 (11:15→14:35)
[2023-01-08] MEDS ORDERED: MORPHINE SULFATE 2 MG/ML SYR IVP PRN (11:15)
--- NOTE | 2023-01-08 11:15 | NUR ---
PATIENT COMPLAINS OF PAIN AND VOMITING. NOTIFIED MD,.WILL MEDICATE WITH PRN PAIN MEDS.
[2023-01-08] MEDS ORDERED: METOCLOPRAMIDE 10 MG/2 ML INJ VIAL IVP SCH (12:00)
--- NOTE | 2023-01-08 14:29 | NUR ---
DC PLANNING ASSESSMENT COMPLETE PLEASE REFER TO ASSESSMENT FOR DETAILS PT REPORTS DC PLAN IS TO RETURN HOME WITH FAMILY PROVIDING TRANSPORATION, WHEN MEDICALLY STABLE. Addendum: 01/08/23 at 1429 by Josefa Rose SS Amended: Links added. Addendum: 01/14/23 at 1510 by Josefa Rose SS SS ORDER: 11AM ATTEMPTED TO MEET PT AT BEDSIDE TO DISCUSS MENTAL HEALTH RESOURCES, HOWEVER, PT SLEEPING AND ASKED THAT RESOURCES BE PLACED ON TRAY TO REVIEW AT A LATER TIME
[2023-01-08 16:00] VITALS: BP 138/83
--- NOTE | 2023-01-08 18:00 | NUR ---
PATIENT VERBALIZES IMPROVEMENT IN PAIN AND NAUSEA.ON NPO STATUS.NO BOWEL MOVEMENT AND URINE OUTPUT NOTED.
--- NOTE | 2023-01-08 19:15 | NUR ---
RECEIVED REPORT FROM AM NURSE, PT IS ASLEEP, NO S/SX OF PAIN NOR DISCOMFORT. NO ACUTE RESPIRATORY DISTRESS. SKIN WARM AND DRY TO TOUCH. SAFETY PRECAUTIONS IN PLACE, CALL LIGHT IN REACH.
--- NOTE | 2023-01-08 19:30 | NUR ---
ENDORSED THE PATIENT TO EDITORIAL CLERK NURSE FOR CONTINUITY OF CARE.
[2023-01-09] VITALS: BP 114/81
[2023-01-09] MEDS: metroNIDAZOLE 500 MG/NS PREMIX 100 ML IV SCH ×3 (04:10→20:24)
--- NOTE | 2023-01-09 06:21 | NUR ---
PATIENT IS ASLEEP. NO DISTRESS NOTED. ALL NEEDS ATTENDED TO. SAFETY PRECAUTIONS IN PLACE, CALL LIGHT REMAINS WITHIN REACH.
[2023-01-09 07:28] LABS: BASOPHILS # (AUTO) 0.1 K/uL (0.00-0.22); BASOPHILS % (AUTO) 0.6 % (0.0-2.0); EOSINOPHILS # (AUTO) 0.1 K/uL (0-0.4); EOSINOPHILS % (AUTO) 1.2 % (0.0-4.0); HEMOGLOBIN 13.4 g/dL (12.0-16.0); LYMPHOCYTES # (AUTO) 3.2 K/uL (2.5-16.5); LYMPHOCYTES % (AUTO) 30.9 % (20.5-51.1); MEAN CORPUSCULAR HEMOGLOBIN 30 pg (27-31); MEAN CORPUSCULAR HGB CONC 34 g/dL (33-37); MEAN CORPUSCULAR VOLUME 87.1 fL (80-94); MONOCYTES # (AUTO) 0.7 K/uL (0.8-1.0); MONOCYTES % (AUTO) 6.8 % (1.7-9.3); NEUTROPHILS # (AUTO) 6.3 K/uL (1.8-7.7); NEUTROPHILS % (AUTO) 60.5 % (42.2-75.2); PLATELET COUNT (AUTO) 260 K/uL (140-450); RED BLOOD CELL COUNT(AUTO) 4.48 MIL/uL (4.20-5.40); RED CELL DISTRIBUTION WIDTH 14.2 % (11.6-13.7); WHITE BLOOD COUNT (AUTO) 10.5 K/uL (4.8-10.8)
[2023-01-09 07:32] LABS: ALBUMIN 3.6 g/dL (3.4-5.0); ANION GAP 9.4 (8-16); CARBON DIOXIDE 33.1 mmol/L (21-32); CREATININE 0.9 mg/dL (0.6-1.3); POTASSIUM 3.5 mmol/L (3.5-5.1); TOTAL BILIRUBIN 0.1 mg/dL (0.0-1.0)
--- NOTE | 2023-01-09 07:34 | NUR ---
RECEIVED PATIENT FROM STOCK HOUSE WORKER NURSE. PATIENT VERBALLY RESPONSES. NO SIGNS OF DISTRESS VERBALIZED. CALL LIGHT WITHIN REACH. WILL CONTINUE TO MONITOR.
[2023-01-09] MEDS: ONDANSETRON 4 MG/2 ML VIAL IVP PRN ×3 (07:46→19:16)
[2023-01-09] MEDS: MORPHINE SULFATE 2 MG/ML SYR IVP PRN ×3 (07:50→20:00)
[2023-01-09 08:00] VITALS: BP 159/100
--- NOTE | 2023-01-09 08:00 | NUR ---
PATIENT COMPLAIN SOF SEVERE NAUSEA AND VOMITING. PATIENT SITTING IN BED, THROWING UP. GAVE ZOFRAN AND MORPHINE FOR SEVERE PAIN. WILL CONTINUE TO MONITOR DISTRESS
[2023-01-09] MEDS ORDERED: METOCLOPRAMIDE 10 MG/2 ML INJ VIAL IVP PRN (08:05)
[2023-01-09] MEDS ORDERED: METOCLOPRAMIDE 10 MG/2 ML INJ VIAL ONE (08:16)
[2023-01-09] MEDS ORDERED: LORazepam 2 MG/ML VIAL ONE (09:30)
--- NOTE | 2023-01-09 09:35 | NUR ---
CONTACTED MD REGARDING THE CONTINIOUS UNCONTROLLED VOMITING AND NAUSEA. ADMINISTERED REGLAN PER ORDER. ORDERED KUB XRAY.COMPLAINS OF ANXIETY NOTED.WILL MEDICATE WITH PRN ANXIETY MEDS
[2023-01-09] MEDS: LACTATED RINGERS 1,000 ML IV SCH ×2 (12:31→23:20)
[2023-01-09] MEDS: METOCLOPRAMIDE 10 MG/2 ML INJ VIAL IVP PRN ×2 (14:10→23:15)
[2023-01-09 16:00] VITALS: BP 159/100
--- NOTE | 2023-01-09 19:16 | NUR ---
RECEIVED PT IN BED AWAKE, ALERT AND ORIENTED. FEELS NAUSEOUS, ZOFRAN GIVEN ORDERED. DENIES PAIN AT THIS TIME. NO ACUTE RESPIRATORY DISTRESS. SKIN WARM AND DRY TO TOUCH.IV SITE INFILTRATED, REMOVED PREVIOUS SITE WITH INTACT CANNULA, RE STARTED IV IN THE RIGHT FORE ARM #24 BY AM RN .SAFETY PRECAUTION IN PLACE, CALL LIGHT IN REACH.
--- NOTE | 2023-01-09 19:30 | NUR ---
ENDORSED THE PATIENT TO WAREHOUSE DISTRIBUTION SPECIALIST NURSE FOR THE CONTINUITY OF CARE.
--- NOTE | 2023-01-09 20:30 | NUR ---
NO NAUSEA NOR VOMITING NOTED. PT ASLEEP AT THIS TIME.
[2023-01-10] VITALS: BP 136/82
[2023-01-10] MEDS: MORPHINE SULFATE 2 MG/ML SYR IVP PRN ×4 (01:54→22:58)
[2023-01-10] MEDS: ONDANSETRON 4 MG/2 ML VIAL IVP PRN ×4 (03:58→23:09)
[2023-01-10] MEDS: metroNIDAZOLE 500 MG/NS PREMIX 100 ML IV SCH ×3 (04:25→20:09)
--- NOTE | 2023-01-10 06:14 | NUR ---
PATIENT IS ASLEEP. ALL NEEDS ATTENDED TO. NO DISTRESS NOTED. SAFETY PRECAUTIONS MAINTAINED DURING THE SHIFT, CALL LIGHT REMAINS WITHIN REACH.
[2023-01-10 07:14] LABS: BASOPHILS % (AUTO) 0.1 % (0.0-2.0); EOSINOPHILS # (AUTO) 0.1 K/uL (0-0.4); EOSINOPHILS % (AUTO) 0.3 % (0.0-4.0); HEMATOCRIT 40.2 % (36-48); HEMOGLOBIN 13.5 g/dL (12.0-16.0); LYMPHOCYTES # (AUTO) 3.3 K/uL (2.5-16.5); LYMPHOCYTES % (AUTO) 21.3 % (20.5-51.1); MEAN CORPUSCULAR HEMOGLOBIN 30 pg (27-31); MEAN CORPUSCULAR HGB CONC 34 g/dL (33-37); MEAN CORPUSCULAR VOLUME 88.3 fL (80-94); MONOCYTES # (AUTO) 1.1 K/uL (0.8-1.0); NEUTROPHILS % (AUTO) 71.3 % (42.2-75.2); PLATELET COUNT (AUTO) 268 K/uL (140-450); RED BLOOD CELL COUNT(AUTO) 4.55 MIL/uL (4.20-5.40); WHITE BLOOD COUNT (AUTO) 15.4 K/uL (4.8-10.8)
[2023-01-10 08:00] VITALS: BP 140/90
[2023-01-10 08:35] LABS: ALBUMIN 3.1 g/dL (3.4-5.0); ANION GAP 8.1 (8-16); CARBON DIOXIDE 32.2 mmol/L (21-32); CREATININE 0.8 mg/dL (0.6-1.3); POTASSIUM 3.3 mmol/L (3.5-5.1); TOTAL BILIRUBIN 0.5 mg/dL (0.0-1.0)
--- NOTE | 2023-01-10 11:10 | NUR ---
SCREEN FOR LOW SERG SCALE AT RISK, CONTINUE TO FOLLOW PRESSURE ULCER PREVENTION INTERVENTIONS. -TURN AND REPOSITION PATIENT Q 2H, ASSIST IF NEEDED -ASSESS AND MONITOR SKIN CONDITION DURING POSITION CHANGES -OFFLOAD BILATERAL HEELS BY PLACING PILLOWS UNDER CALVES AT ALL TIMES, UNLESS OTHERWISE CONTRAINDICATED -PRESSURE REDISTRIBUTION BY PLACING PILLOWS AND OFFLOADING SACRALCOCCYX -KEEP SKIN CLEAN AND DRY AT ALL TIMES.
[2023-01-10 12:00] VITALS: BP 125/70
[2023-01-10 16:00] VITALS: BP 115/76
[2023-01-10] MEDS: LACTATED RINGERS 1,000 ML IV SCH (16:22)
[2023-01-10] MEDS: LORazepam 2 MG/ML VIAL IM/IVP PRN (23:54)
[2023-01-11] VITALS: BP 151/99
[2023-01-11] MEDS: METOCLOPRAMIDE 10 MG/2 ML INJ VIAL IVP PRN ×2 (00:34→11:59)
[2023-01-11] MEDS: LACTATED RINGERS 1,000 ML IV SCH ×2 (01:30→13:02)
[2023-01-11] MEDS: metroNIDAZOLE 500 MG/NS PREMIX 100 ML IV SCH ×3 (05:08→21:57)
[2023-01-11] MEDS: MORPHINE SULFATE 2 MG/ML SYR IVP PRN ×3 (06:54→18:41)
[2023-01-11 06:56] LABS: ALBUMIN 4.2 g/dL (3.4-5.0); ANION GAP 15.4 (8-16); CARBON DIOXIDE 25.9 mmol/L (21-32); CREATININE 0.8 mg/dL (0.6-1.3); POTASSIUM 3.3 mmol/L (3.5-5.1); TOTAL BILIRUBIN 0.8 mg/dL (0.0-1.0)
--- NOTE | 2023-01-11 06:58 | NUR ---
PT IS STABLE. NO ACUTE EVENTS THROUGHOUT THE NIGHT.ALL NEEDS ATTENDED. NO S/SX OF DISTRESS AT THIS TIME. NO COMPLAINS OF PAIN. ALL PRECAUTIONS IN PLACE. CALL LIGHT WITHIN REACH. WILL ENDORSE TO DAY SHIFT RN.
--- NOTE | 2023-01-11 07:22 | NUR ---
RECEIVED PT FROM HISTOTECHNICIAN NURSE FOR CONTINUITY OF CARE. PT IN BED SLEEPING, VISIBLE CHEST RISE/FALL. RESPIRATIONS EVEN AND UNLABORED ON RA. NO DISTRESS NOTED. CALL LIGHT WITHIN REACH. ALL SAFETY PRECAUTIONS IN PLACE.
[2023-01-11 08:00] VITALS: BP 158/91
[2023-01-11] MEDS ORDERED: predniSONE 20 MG TAB PO SCH (09:00)
[2023-01-11] MEDS: ONDANSETRON 4 MG/2 ML VIAL IVP PRN (11:51)
[2023-01-11] MEDS ORDERED: methylPREDNISolone SS 40 MG in WATER STERILE 1 ML IV SCH (12:10)
[2023-01-11] MEDS ORDERED: KCL 20 MEQ IN 100 mL PREMIX 100 ML IV ONE (12:15)
[2023-01-11] MEDS ORDERED: KCL 20 MEQ IN 100 mL PREMIX 200 ML IV SCH (12:50)
[2023-01-11 14:19] LABS: BASOPHILS # (AUTO) 0.1 K/uL (0.00-0.22); BASOPHILS % (AUTO) 0.3 % (0.0-2.0); EOSINOPHILS # (AUTO) 0.1 K/uL (0-0.4); EOSINOPHILS % (AUTO) 0.2 % (0.0-4.0); HEMATOCRIT 45.4 % (36-48); HEMOGLOBIN 15.6 g/dL (12.0-16.0); LYMPHOCYTES % (AUTO) 8.5 % (20.5-51.1); MEAN CORPUSCULAR HEMOGLOBIN 29 pg (27-31); MEAN CORPUSCULAR HGB CONC 34 g/dL (33-37); MEAN CORPUSCULAR VOLUME 85.6 fL (80-94); MONOCYTES % (AUTO) 4.5 % (1.7-9.3); NEUTROPHILS # (AUTO) 20.4 K/uL (1.8-7.7); NEUTROPHILS % (AUTO) 86.5 % (42.2-75.2); PLATELET COUNT (AUTO) 308 K/uL (140-450); RED BLOOD CELL COUNT(AUTO) 5.31 MIL/uL (4.20-5.40); RED CELL DISTRIBUTION WIDTH 13.7 % (11.6-13.7); WHITE BLOOD COUNT (AUTO) 23.6 K/uL (4.8-10.8)
[2023-01-11 16:00] VITALS: BP 122/83
[2023-01-11] MEDS: PROCHLORPERAZINE 10 MG/2 ML VIAL IVP PRN (18:06)
--- NOTE | 2023-01-11 18:28 | NUR ---
01/11/23 RD INITIAL ASSESSMENT COMPLETED. PLEASE REFER TO NUTRITION ASSESSMENT UNDER CARE ACTIVITY FOR ESTIMATED NUTRITIONAL NEEDS. 1. CONTINUE CLEAR LIQUID DIET TOLERATED. WHEN/IF MEDICALLY APPROPRIATE, GRADUALLY ADVANCE TO REGULAR. 2. MONITOR GI SYMPTOMS. 3. RD TO FOLLOW-UP 3-5 DAYS, MODERATE RISK. DIANE SOTOMAYOR RD
--- NOTE | 2023-01-11 19:20 | NUR ---
ENDORSED PT TO INVESTMENT OFFICER NURSE FOR CONTINUITY OF CARE. PT IS STABLE.
--- NOTE | 2023-01-11 19:30 | NUR ---
RECEIVED REPORT FROM DAY RN FOR CONTINUITY OF CARE .PT IS ASLEEP, SON AT BEDSIDE.NO S/SX OF PAIN NOR DISCOMFORT. NO ACUTE RESPIRATORY DISTRESS NOTED. SKIN WARM AND DRY TO TOUCH. SAFETY PRECAUTIONS IN PLACE, CALL LIGHT IN REACH. WILL CONTINUE TO MONITOR.
[2023-01-11] MEDS: methylPREDNISolone SS 40 MG/ML VIAL IVP SCH (21:57)
--- NOTE | 2023-01-11 22:00 | NUR ---
SCHEDULED MEDICATIONS GIVEN. PT TOLERATED WELL. NO COMPLAINS OF NAUSEA OR VOMITING AT THIS MOMENT. WILL CONTINUE TO MONITOR.
[2023-01-12] VITALS: BP 132/95
[2023-01-12] MEDS: LACTATED RINGERS 1,000 ML IV SCH ×2 (02:30→15:54)
[2023-01-12] MEDS: PROCHLORPERAZINE 10 MG/2 ML VIAL IVP PRN ×2 (05:21→16:24)
[2023-01-12] MEDS: metroNIDAZOLE 500 MG/NS PREMIX 100 ML IV SCH ×3 (05:21→20:16)
[2023-01-12] MEDS: MORPHINE SULFATE 2 MG/ML SYR IVP PRN ×2 (05:40→16:25)
--- NOTE | 2023-01-12 06:27 | NUR ---
PT IS STABLE. NO ACUTE EVENTS THROUGHOUT THE NIGHT.ALL NEEDS ATTENDED. NO S/SX OF DISTRESS AT THIS TIME. NO SIGNS OF PAIN. ALL PRECAUTIONS IN PLACE. CALL LIGHT WITHIN REACH. WILL ENDORSE TO DAY SHIFT NURSE.
[2023-01-12 08:00] VITALS: BP 189/68
[2023-01-12] MEDS: methylPREDNISolone SS 40 MG/ML VIAL IVP SCH ×2 (08:08→20:16)
[2023-01-12] MEDS: LORazepam 2 MG/ML VIAL IM/IVP PRN (08:09)
--- NOTE | 2023-01-12 08:16 | NUR ---
PATIENT SEATED IN BED CLENCHING STOMACH SAYS SHE NEEDS SOMETHING TO HELP WITH PAIN RELIEF AND WANTS TO SLEEP. SAYS PAIN STARTED AT HOME IN HER ABDOMEN AND CONTINUES THROUGH HOSPITALIZATION. SAYS SHE HAS NAUSEA AND VOMITING ASSOCIATED WITH THE PAIN. EDUCATION PAIN MEDICATION AND NAUSEA MEDICATION WERE GIVEN AND CANNOT BE GIVEN AT THIS TIME BUT WOULD GIVE HER SOMETHING FOR PAIN/SWELLING CALLED SOLUMEDROL AND SOMTHING FOR ANXIETY, ATIVAN. SAYS SHE FEELS PAIN EVEN WITH MORPHINE. GIVEN NEEDED ATIVAN FOR PATIENT RESTLESSNESS, ANXIETY SYMPTOMS SURROUNDING HER PAIN. HAD 2 PERIPHERAL IV SITES ON LEFT ARM. SHE SAYS THE HAND SITE CAME OUT AFTER GIVEN MEDICATION. LEFT WRIST SITE CONNECTION TO IV FLUID AT KVO PER NIGHT TEAM RN.
--- NOTE | 2023-01-12 08:35 | NUR ---
PATIENT REFUSES LAB WORK SAYS SHE IS VOMITING TO DETAILER FURNITURE. DETAILER FURNITURE ASKS BRUSH CUTTER TO CHECK ON PATIENT. PATIENT HAS A BAG WITH LIQUID IN IT. TOP SHEET HAS GREEN LIQUID IN IT. PATIENT REFUSES CLEAR LIQUID BREAKFAST. PATIENT REFUSES VITAL SIGNS. EDUCATION ABOUT TREATMENT REQUIRING LAB WORK AND VITAL SIGNS. PATIENT SAYS SHE NEEDS TO TALK WITH HER DOCTOR.
--- NOTE | 2023-01-12 11:07 | NUR ---
PATIENT SLEEPING AT THIS TIME.
[2023-01-12] MEDS ORDERED: MIDAZOLAM 2 MG/2 ML VIAL ONE (11:56)
[2023-01-12] MEDS ORDERED: fentaNYL citrate 0.05 MG/ML VIAL ONE (11:56)
[2023-01-12 12:00] VITALS: BP 160/106
[2023-01-12 16:00] VITALS: BP 152/92
--- NOTE | 2023-01-12 18:49 | NUR ---
GIVEN ONE ENEMA THIS SHIFT SAYS SHE WILL TAKE THE OTHER TOMORROW. AWARE OF NPO ORDER AT MIDNIGHT SAYS SHE HAS MOSTLY BEEN NPO THIS ADMISSION.
--- NOTE | 2023-01-12 20:10 | NUR ---
PATIENT IN BED AWAKE ALERT ORIENTED. NO SOB NOTED ON ROOM AIR. IVF LR AT 100 ML/HR IN THE LEFT HAND. REMINDED PATIENT NPO AFTER MIDNIGHT WITH UNDERSTANDING. SAFETY MEASURES IN PLACE. CALL LIGHT WITHIN REACH. COMPLAINED OF NAUSEA, NOTIFIED DR JARAMILLO WITH ORDERS NOTED, CARRIED OUT. WILL MEDICATE PATIENT.
--- NOTE | 2023-01-12 20:16 | NUR ---
ADMINISTERED SCHEDULED DUE MEDICATIONS.
[2023-01-12] MEDS ORDERED: ONDANSETRON 4 MG/2 ML VIAL IVP PRN (21:30)
--- NOTE | 2023-01-12 21:30 | NUR ---
CHECK ON PATIENT, PT SLEEPING IN NO ACUTE DISTRESS. ZOFRAN NOT GIVEN D/T PATIENT SLEEPING.
[2023-01-13] VITALS: BP 134/90
[2023-01-13] MEDS: MORPHINE SULFATE 2 MG/ML SYR IVP PRN ×2 (03:28→14:14)
[2023-01-13] MEDS: LACTATED RINGERS 1,000 ML IV SCH ×2 (03:30→16:11)
--- NOTE | 2023-01-13 03:56 | NUR ---
PATIENT CALLED AND COMPLAINED OF SEVERE NAUSEA. CHECKED PATIENT'S VITALS AND CHART; ZOFRAN WAS APPROPRIATE TO GIVE. ADMINISTERED MEDICATION TO PATIENT SUCCESSFULLY WITHOUT ANY ISSUES. PATIENT THANKED ME. INFORMED ALEXANDRE GATES OF ADMINISTRATION.
[2023-01-13] MEDS ORDERED: SODIUM PHOSPHATE 118 ML ENEM RC ONE (05:00)
[2023-01-13] MEDS: metroNIDAZOLE 500 MG/NS PREMIX 100 ML IV SCH ×2 (05:29→12:53)
[2023-01-13 07:01] LABS: ALBUMIN 4.1 g/dL (3.4-5.0); ANION GAP 15.5 (8-16); CARBON DIOXIDE 24.8 mmol/L (21-32); CREATININE 0.7 mg/dL (0.6-1.3); MAGNESIUM 1.8 mg/dL (1.8-2.4); POTASSIUM 3.3 mmol/L (3.5-5.1); TOTAL BILIRUBIN 0.5 mg/dL (0.0-1.0)
[2023-01-13 07:05] LABS: HEMATOCRIT 41.7 % (36-48); HEMOGLOBIN 13.9 g/dL (12.0-16.0); LYMPHOCYTES # (AUTO) 1.7 K/uL (2.5-16.5); LYMPHOCYTES % (AUTO) 7.4 % (20.5-51.1); MEAN CORPUSCULAR HEMOGLOBIN 29 pg (27-31); MEAN CORPUSCULAR HGB CONC 33 g/dL (33-37); MEAN CORPUSCULAR VOLUME 87.1 fL (80-94); MONOCYTES # (AUTO) 1.1 K/uL (0.8-1.0); MONOCYTES % (AUTO) 4.8 % (1.7-9.3); NEUTROPHILS # (AUTO) 19.9 K/uL (1.8-7.7); NEUTROPHILS % (AUTO) 87.8 % (42.2-75.2); PLATELET COUNT (AUTO) 383 K/uL (140-450); RED BLOOD CELL COUNT(AUTO) 4.79 MIL/uL (4.20-5.40); RED CELL DISTRIBUTION WIDTH 14.1 % (11.6-13.7); WHITE BLOOD COUNT (AUTO) 22.7 K/uL (4.8-10.8)
[2023-01-13 07:20] LABS: PROTHROMBIN TIME 12.9 secs (10.8-13.4)
--- NOTE | 2023-01-13 07:28 | NUR ---
GAVE REPORT TO DAY SHIFT NURSE FOR CONTINUITY OF CARE. PATIENT WITH EPISODES OF VOMITING.
[2023-01-13 08:00] VITALS: BP 134/90
--- NOTE | 2023-01-13 08:15 | NUR ---
PATIENT IN GASTROENTEROLOGY PROCEDURE.
[2023-01-13] MEDS ORDERED: MIDAZOLAM 2 MG/2 ML VIAL IVP ONE (08:40)
[2023-01-13] MEDS ORDERED: fentaNYL citrate 0.05 MG/ML VIAL IVP ONE (08:40)
--- NOTE | 2023-01-13 08:48 | NUR ---
PATIENT RETURN FROM GASTROENTEROLOGY.
[2023-01-13] MEDS: PANTOPRAZOLE 40 MG INJ VIAL IVP SCH (09:38)
[2023-01-13] MEDS: PROCHLORPERAZINE 10 MG/2 ML VIAL IVP PRN ×2 (10:16→16:29)
[2023-01-13] MEDS: LORazepam 2 MG/ML VIAL IM/IVP PRN (10:16)
--- NOTE | 2023-01-13 10:27 | NUR ---
PATIENT ANXIOUS ABOUT HER DIET/ABDOMINAL PAIN/ AND POSSIBLE DISCHARGE. SAYS SHE FEELS NAUSEATED. GIVEN NEEDED MEDICATION FOR ANXIETY AND NAUSEA.
--- NOTE | 2023-01-13 15:26 | NUR ---
PATIENT NOTES HER PAIN IS ABOUT THE SAME AFTER MORPHINE DOSE FOLLOW UP.
[2023-01-13 16:00] VITALS: BP 126/81
--- NOTE | 2023-01-13 16:31 | NUR ---
PATIENT SAYS SHE NEEDS MORE MEDICATION FOR ABDOMINAL PAIN AND NAUSEA. EDUCATION ABOUT MORPHINE DOSE DISCONTINUATION. PATIENT VERBALIZES UNDERSTANDING. AWARE SALES AND SERVICE TECHNICIAN ABLE TO GIVE NORCO. SAYS SHE WILL TRY PO TAB. AWARE SALES AND SERVICE TECHNICIAN UNABLE TO GIVE NAUSEA MEDICATION AT THIS TIME.
[2023-01-13] MEDS: HYDROcodone/APAP 5/325 MG 1 TAB TAB PO PRN ×2 (16:35→20:44)
--- NOTE | 2023-01-13 16:56 | NUR ---
PATIENT MD AWARE OF PATIENT STOOL SAMPLE FOR C.DIFF UNLIKELY TO MEET CRITERIA FOR PROCESSING. ORDERS TO STOP ANTIBIOTIC, MORPHINE AND STEROID ARE IN PLACE MD WILL ROUND AGAIN IN AM TO CHECK ON PATIENT PAIN, NAUSEA AND MAY HAVE FURTHER TREATMENT IF NEEDS ARISE .
--- NOTE | 2023-01-13 20:40 | NUR ---
PATIENT RESTING IN BED. NO S/S OF RESPIRATORY DISTRESS. RESPIRATION EVEN UNLABORED. SKIN WARM AND DRY TO THE TOUCH. IVF LR INFUSING 80 ML/HR. CALL LIGHT WITHIN REACH. AMBULATORY. PATIENT COMPLAINED OF MODERATE PAIN. WILL MEDICATE.
[2023-01-14] VITALS: BP 129/76
[2023-01-14] MEDS: HYDROcodone/APAP 5/325 MG 1 TAB TAB PO PRN ×2 (00:58→06:53)
[2023-01-14] MEDS: PROCHLORPERAZINE 10 MG/2 ML VIAL IVP PRN (01:44)
--- NOTE | 2023-01-14 01:44 | NUR ---
PATIENT HAD EPISODE OD VOMITING, MEDICATED ORDERED.
[2023-01-14] MEDS: LACTATED RINGERS 1,000 ML IV SCH ×2 (04:30→06:48)
--- NOTE | 2023-01-14 07:20 | NUR ---
ASSUMED CONTINUITY OF CARE. INITIAL ASSESSMENT DONE. KEEP COMFORTABLE ON BED. CALL LIGHT WITHIN REACH.
--- NOTE | 2023-01-14 07:25 | NUR ---
ENDORSED PATIENT TO MORNING SHIFT NURSE FOR CONTINUITY OF CARE.
[2023-01-14 07:30] LABS: BASOPHILS % (AUTO) 0.1 % (0.0-2.0); EOSINOPHILS % (AUTO) 0.3 % (0.0-4.0); HEMATOCRIT 39.3 % (36-48); HEMOGLOBIN 13.4 g/dL (12.0-16.0); LYMPHOCYTES % (AUTO) 23.6 % (20.5-51.1); MEAN CORPUSCULAR HEMOGLOBIN 30 pg (27-31); MEAN CORPUSCULAR HGB CONC 34 g/dL (33-37); MEAN CORPUSCULAR VOLUME 86.4 fL (80-94); MONOCYTES # (AUTO) 1.4 K/uL (0.8-1.0); MONOCYTES % (AUTO) 8.2 % (1.7-9.3); NEUTROPHILS # (AUTO) 11.4 K/uL (1.8-7.7); NEUTROPHILS % (AUTO) 67.8 % (42.2-75.2); PLATELET COUNT (AUTO) 356 K/uL (140-450); RED BLOOD CELL COUNT(AUTO) 4.56 MIL/uL (4.20-5.40); RED CELL DISTRIBUTION WIDTH 14.1 % (11.6-13.7); WHITE BLOOD COUNT (AUTO) 16.8 K/uL (4.8-10.8)
[2023-01-14 07:46] LABS: ALBUMIN 3.9 g/dL (3.4-5.0); ANION GAP 11.4 (8-16); CARBON DIOXIDE 28.1 mmol/L (21-32); CREATININE 0.9 mg/dL (0.6-1.3); POTASSIUM 3.5 mmol/L (3.5-5.1); TOTAL BILIRUBIN 0.6 mg/dL (0.0-1.0)
[2023-01-14 08:00] VITALS: BP 113/89
--- NOTE | 2023-01-14 08:00 | NUR ---
Patient's Plan of Care was discussed and reviewed with CARVING MACHINE OPERATOR:
[2023-01-14] MEDS: PANTOPRAZOLE 40 MG INJ VIAL IVP SCH (09:00)
[2023-01-14] MEDS ORDERED: COM25S RC (09:11)
--- NOTE | 2023-01-14 13:50 | NUR ---
D/C HOME VIA WHEELCHAIR. NO C/O PAIN. NO C/O N/V. IN STABLE CONDITION. INFORMED CHARGE NURSE ERNIE CARREON.
== END 2023-01-14 11:34 | disposition home or self-care (01) | DRG 249 ==
LOC: MED 16:39 → MMU 22:33 → MTU 23:24
PROVIDERS: ADMIT Hospitalist; ATTEND Hospitalist
PROC: 0DJ08ZZ Inspection of Upper Intestinal Tract, Via Natural or Artificial Opening Endoscopic (ICD-10-PCS; principal; 2023-01-13 07:30)
PROC: 0DJD8ZZ Inspection of Lower Intestinal Tract, Via Natural or Artificial Opening Endoscopic (ICD-10-PCS; 2023-01-13 07:30)
DX: K52.9 Noninfective gastroenteritis and colitis, unspecified (principal); R65.10 Systemic inflammatory response syndrome (SIRS) of non-infectious origin without acute organ dysfunction; E87.6 Hypokalemia; K21.9 Gastro-esophageal reflux disease without esophagitis; Z20.822 Contact with and (suspected) exposure to COVID-19; Z90.49 Acquired absence of other specified parts of digestive tract
CPT/HCPCS: 36415; 71045; 74018; 80053; 81003; 82948; 83690; 83735; 84702; 85025; 85610; 85651; 85730; 86140; 87040; 87081; 96361; 96365; 96367; 96375; 96376; 99285; C9113; J0696; J0780; J1200; J1630; J2060; J2250; J2270; J2405; J2765; J2920; J3010; J3480; J3490; J7030; J7060; J7512; Q0092

== ENCOUNTER 2023-01-27 04:10 | Emergency (ER) | payer OTHER ==
[~2023-01-27] VITALS: Ht 167.6 cm; Wt 65.8 kg
[2023-01-27 04:10] VITALS: BP 129/99
[~2023-01-27 04:10] MED LIST changes: +COM25S RC; -DICY10CA14 PO; -FAMO-90 PO; -HYDR25CA1 PO
--- NOTE | 2023-01-27 04:10 | NUR ---
TO LOBBY A/W BED, VIRA FROM HOME, WITH C/O ABD PAIN, NAUSEA AND VAG BLEEDING
--- NOTE | 2023-01-27 04:58 | NUR ---
Dr. Nettles examining patient.
[2023-01-27] MEDS ORDERED: NACL 0.9% 1,000 ML IV ONE ×3 (05:15→08:20)
--- NOTE | 2023-01-27 05:25 | NUR ---
PT TAKEN TO BED 5
--- NOTE | 2023-01-27 05:40 | NUR ---
ATTEMPTED IV ACCESS UNSUCCESSFUL.
[2023-01-27] MEDS ORDERED: diphenhydrAMINE 50 MG/ML VIAL IVP ONE (06:10)
[2023-01-27] MEDS ORDERED: HALOPERIDOL IM 5 MG/ML VIAL IVP ONE (06:10)
--- NOTE | 2023-01-27 06:40 | NUR ---
43YR OLD FEMALE BIB SELF C/O ABD PAIN / VOMITING. PT STATES SX ARE CHRONIC . 10/10 SHARP DULL PAIN. PT IS A&OX4. SKIN IS COOL AND DRY INTACT. ON BEDSIDE CARDIC MONITOR WITH HOB ELEVATED. ABD IS NONTENDER NO URINATION DIFFCULTLY. DENIES CP OR SOB. PT IS ACTIVELY VOMITING. +DIARRHEA DENIES FEVER. NKDA NO MED HX
--- NOTE | 2023-01-27 06:55 | NUR ---
[employer] DRAWING BLOODWORK AT BEDSIDE
--- NOTE | 2023-01-27 07:01 | NUR ---
LAB AT BEDSIDE
--- NOTE | 2023-01-27 07:25 | NUR ---
REPORT RECEIVED FROM KACI KING. ASSUMED CARE AT THIS TIME
[2023-01-27 07:34] LABS: BASOPHILS % (AUTO) 0.2 % (0.0-2.0); EOSINOPHILS % (AUTO) 0.1 % (0.0-4.0); HEMATOCRIT 40.2 % (36-48); HEMOGLOBIN 13.3 g/dL (12.0-16.0); LYMPHOCYTES # (AUTO) 1.2 K/uL (2.5-16.5); LYMPHOCYTES % (AUTO) 9.9 % (20.5-51.1); MEAN CORPUSCULAR HEMOGLOBIN 29 pg (27-31); MEAN CORPUSCULAR HGB CONC 33 g/dL (33-37); MEAN CORPUSCULAR VOLUME 88.9 fL (80-94); MONOCYTES # (AUTO) 0.7 K/uL (0.8-1.0); MONOCYTES % (AUTO) 5.6 % (1.7-9.3); NEUTROPHILS # (AUTO) 10.5 K/uL (1.8-7.7); NEUTROPHILS % (AUTO) 84.2 % (42.2-75.2); PLATELET COUNT (AUTO) 385 K/uL (140-450); RED BLOOD CELL COUNT(AUTO) 4.53 MIL/uL (4.20-5.40); RED CELL DISTRIBUTION WIDTH 14.5 % (11.6-13.7); WHITE BLOOD COUNT (AUTO) 12.5 K/uL (4.8-10.8)
[2023-01-27 08:02] LABS: ALBUMIN 3.7 g/dL (3.4-5.0); ANION GAP 13.8 (8-16); CARBON DIOXIDE 27.1 mmol/L (21-32); CREATININE 1.1 mg/dL (0.6-1.3); POTASSIUM 3.9 mmol/L (3.5-5.1); TOTAL BILIRUBIN 0.7 mg/dL (0.0-1.0)
--- NOTE | 2023-01-27 08:10 | NUR ---
pt encouraged to give urine sample "not right now". w/ new pain onset, MADE AWARE
[2023-01-27] MEDS ORDERED: DICYCLOMINE 20 MG/2 ML VIAL IM ONE (08:20)
[2023-01-27] MEDS ORDERED: METOCLOPRAMIDE 10 MG/2 ML INJ VIAL IVP ONE (08:20)
[2023-01-27] MEDS ORDERED: FAMOTIDINE 20 MG/2 ML VIAL IVP ONE (08:20)
--- NOTE | 2023-01-27 10:44 | NUR ---
IV removed, catheter intact and site benign. Applied folded 4x4 gauze and tape to stop bleeding.
[2023-01-27 10:47] VITALS: BP 138/88
--- NOTE | 2023-01-27 10:47 | NUR ---
Patient discharged with v/s stable. Written and verbal after care instructions FOR GASTRITIS AND CYCLIC VOMITING SYNDROME given and explained. Patient verbalized understanding. Ambulatory with steady gait. All questions addressed prior to discharge. Advised to follow up with PMD.
--- NOTE | 2023-01-27 10:50 | NUR ---
The patient's care was reviewed and supervised by Olamide Roldan RN.
[2023-01-27 11:11] LABS: APPEARANCE,URINE CLEAR (CLEAR); BILIRUBIN,URINE 1+ (NEGATIVE); BLOOD, URINE 3+ (NEGATIVE); COLOR,URINE YELLOW (YELLOW); LEUKOCYTE ESTERASE ,URINE NEGATIVE (NEGATIVE); NITRITE, URINE NEGATIVE (NEGATIVE); PH,URINE 7.5 (5.0-9.0); UGLUCOSE NEGATIVE (NEGATIVE)
[2023-01-27 11:36] LABS: RBC,URINE 20-50 /HPF (0-5); WBC,URINE 0-5 /HPF (0-5); YEAST,URINE Many /HPF (None Seen)
[2023-01-27 11:44] LABS: BARBITURATE, URINE NEGATIVE ng/ml (NEG <=200); BENZODIAZEPINE, URINE POSITIVE ng/mL (NEG <=200); CANNABINOID, URINE NEGATIVE ng/mL (NEG <=50); COCAINE, URINE NEGATIVE ng/mL (NEG <=300); OPIATE, URINE NEGATIVE ng/mL (NEG <=2000); PHENCYCLIDINE SCREEN,URINE NEGATIVE ng/mL (NEG <=25)
== END 2023-01-27 10:47 | disposition home or self-care (01) ==
LOC: MED 04:10
DX: R11.2 Nausea with vomiting, unspecified (principal); K29.70 Gastritis, unspecified, without bleeding; R74.01 Elevation of levels of liver transaminase levels; K58.9 Irritable bowel syndrome, unspecified; K21.9 Gastro-esophageal reflux disease without esophagitis; F12.90 Cannabis use, unspecified, uncomplicated; Z79.899 Other long term (current) drug therapy; Z79.2 Long term (current) use of antibiotics
CPT/HCPCS: 36415; 80053; 80305; 81001; 81025; 85025; 87086; 96361; 96372; 96374; 96375; 99285; J0500; J1200; J1630; J2765; J3490; J7030